=== PATIENT | female | born 1955 | race Caucasian/White ===

== ENCOUNTER 2017-04-12 09:29 | Emergency (ER) | payer OTHER, MEDICAID ==
--- NOTE | 2017-04-12 09:35 | EDM.PDOC ---
ED HPI GENERAL MEDICAL PROBLEM - General Stated Complaint: UNK Time Seen by Provider: 04/12/17 09:35 Source of Information: Reports: Patient - History of Present Illness INITIAL COMMENTS - FREE TEXT/NARRATIVE: HISTORY AND PHYSICAL: History of present illness: [] Patient presents with 8/10 crampy abdominal pain in the right upper quadrant developing over the last few days some association with nausea vomiting 2 weeks ago she was seen [place] with similar similar complaint she states she was found to have "blockage of stool" No fever intermittent nausea and vomiting no chest pain shortness breath headache dizziness or palpitation no bowel or urine symptoms Patient has history of gastric bypass Review of systems: As per history of present illness and below otherwise all systems reviewed and negative. Past medical history: As per history of present illness and as reviewed below otherwise noncontributory. Surgical history: As per history of present illness and as reviewed below otherwise noncontributory. Social history: No reported history of drug or alcohol abuse. Family history: As per history of present illness and as reviewed below otherwise noncontributory. Physical exam: HEENT: Atraumatic, normocephalic, pupils reactive, negative for conjunctival pallor or scleral icterus, mucous membranes moist, throat clear, neck supple, nontender, trachea midline. Lungs: Clear to auscultation, breath sounds equal bilaterally, chest nontender. Heart: S1S2, regular, negative for clicks, rubs, or JVD. Abdomen: Soft, nondistended, tender in right upper quadrant mild guarding no rebound, no tenderness in lower quadrants, Negative for masses or hepatosplenomegaly. Negative for costovertebral tenderness. Pelvis: Stable nontender. Genitourinary: Deferred. Rectal: Deferred. Extremities: Atraumatic, negative for cords or calf pain. Neurovascular unremarkable. Neuro: Awake, alert, oriented. Cranial nerves II through XII unremarkable. Cerebellum unremarkable. Motor and sensory unremarkable throughout. Exam nonfocal. Diagnostics: [] Lab as below EKG CT abdomen pelvis with contrast Therapeutics: [] Normal saline 125 cc per hour Toradol 30 mg IV Zofran 8 mg IV Patient discussed with Dr. Morales general surgery he'll be down for evaluation further treatment pending his evaluation and treatment Impression: colon Obstruction [] Abdominal pain Definitive disposition and diagnosis as appropriate pending reevaluation and review of above. Abdominal Pain Score (Numeric/FACES): 8 - Related Data Allergies Allergy/AdvReac Type Severity Reaction Status Date / Time myacin Allergy Other Uncoded 04/12/17 09:48 Home Meds: Home Meds Hydrocodone/Acetaminophen [Hydrocodon-Acetaminoph 7.5-325] 7.5 - 325 mg PO Q4HR PRN 04/12/17 [History] ED ROS GENERAL - Review of Systems Review Of Systems: ROS reveals no pertinent complaints other than HPI. ED EXAM, GENERAL - Physical Exam Exam: See Below Course - Vital Signs Last Recorded V/S: Last Vital Signs Temp 36.4 C 04/12/17 09:39 Pulse 102 H 04/12/17 13:50 Resp 18 04/12/17 10:06 BP 119/59 L 04/12/17 13:50 Pulse Ox 96 04/12/17 13:50 - Orders/Labs/Meds Orders: Active Orders 24 hr Category Date Time Status Ondansetron [Zofran] Med 04/12/17 14:14 Once 4 mg IVPUSH ONETIME ONE Sodium Chloride 0.9% [Normal Saline] 1,000 ml Med 04/12/17 09:45 Active IV STAT Medication Orders Sodium Chloride (Normal Saline) 1,000 mls @ 125 mls/hr IV STAT JASON Last Admin: 04/12/17 09:59 Dose: 125 mls/hr Labs: Laboratory Tests 04/12/17 04/12/17 04/12/17 Range/Units 09:50 09:50 09:50 WBC 7.41 (4.0-11.0) K/uL RBC 4.07 L (4.30-5.90) M/uL Hgb 10.8 L (12.0-16.0) g/dL Hct 35.7 L (36.0-46.0) % MCV 87.7 (80.0-98.0) fL MCH 26.5 L (27.0-32.0) pg MCHC 30.3 L (31.0-37.0) g/dL RDW Std Deviation 63.7 H (28.0-62.0) fl RDW Coeff of Samantha 20 H (11.0-15.0) % Plt Count 356 (150-400) K/uL MPV 9.40 (7.40-12.00) fL Neut % (Auto) 66.6 (48.0-80.0) % Lymph % (Auto) 22.7 (16.0-40.0) % [place] % (Auto) 10.4 (0.0-15.0) % Eos % (Auto) 0.0 (0.0-7.0) % Baso % (Auto) 0.3 (0.0-1.5) % Neut # (Auto) 4.9 (1.4-5.7) K/uL Lymph # (Auto) 1.7 (0.6-2.4) K/uL [place] # (Auto) 0.8 (0.0-0.8) K/uL Eos # (Auto) 0.0 (0.0-0.7) K/uL Baso # (Auto) 0.0 (0.0-0.1) K/uL Nucleated RBC % 0.0 /100WBC Nucleated RBCs # 0 K/uL Sodium 140 (136-146) mmol/L Potassium 3.9 (3.5-5.1) mmol/L Chloride 110 (98-110) mmol/L Carbon Dioxide 19 L (21-31) mmol/L BUN 11 (6.0-23.0) mg/dL Creatinine 0.8 (0.6-1.5) mg/dL Est Cr Clr Drug Dosing 68.26 mL/min Estimated GFR (MDRD) > 60.0 ml/min Glucose 90 (60-110) mg/dL Calcium 7.5 L (8.8-10.8) mg/dL Total Bilirubin 0.5 (0.1-1.5) mg/dL AST 19 (5-40) IU/L ALT 20 (8-54) IU/L Alkaline Phosphatase 105 (40-150) Troponin I < 0.10 (0.0-0.29) NG/ML Total Protein 5.8 L (6.0-8.0) g/dL Albumin 2.2 L (3.4-4.8) g/dL Globulin 3.6 H (2.0-3.5) g/dL Albumin/Globulin Ratio 0.6 L (1.3-2.8) Amylase 30 (10-90) U/L Lipase 8 (7-80) U/L Urine Color Urine Appearance Urine pH (5.0-8.0) Ur Specific [place] (1.001-1.035) Urine Protein (NEGATIVE) mg/dL Urine Glucose (UA) (NEGATIVE) mg/dL Urine Ketones (NEGATIVE) mg/dL Urine Occult Blood (NEGATIVE) Urine Nitrite (NEGATIVE) Urine Bilirubin (NEGATIVE) Urine Ictotest Urine Urobilinogen (<2.0) EU/dL Ur Leukocyte Esterase (NEGATIVE) Urine RBC (0-2/HPF) Urine WBC (0-5/HPF) Ur Epithelial Cells (NONE-FEW) Urine Bacteria (NEGATIVE) 04/12/17 Range/Units 10:33 WBC (4.0-11.0) K/uL RBC (4.30-5.90) M/uL Hgb (12.0-16.0) g/dL Hct (36.0-46.0) % MCV (80.0-98.0) fL MCH (27.0-32.0) pg MCHC (31.0-37.0) g/dL RDW Std Deviation (28.0-62.0) fl RDW Coeff of Samantha (11.0-15.0) % Plt Count (150-400) K/uL MPV (7.40-12.00) fL Neut % (Auto) (48.0-80.0) % Lymph % (Auto) (16.0-40.0) % [place] % (Auto) (0.0-15.0) % Eos % (Auto) (0.0-7.0) % Baso % (Auto) (0.0-1.5) % Neut # (Auto) (1.4-5.7) K/uL Lymph # (Auto) (0.6-2.4) K/uL [place] # (Auto) (0.0-0.8) K/uL Eos # (Auto) (0.0-0.7) K/uL Baso # (Auto) (0.0-0.1) K/uL Nucleated RBC % /100WBC Nucleated RBCs # K/uL Sodium (136-146) mmol/L Potassium (3.5-5.1) mmol/L Chloride (98-110) mmol/L Carbon Dioxide (21-31) mmol/L BUN (6.0-23.0) mg/dL Creatinine (0.6-1.5) mg/dL Est Cr Clr Drug Dosing mL/min Estimated GFR (MDRD) ml/min Glucose (60-110) mg/dL Calcium (8.8-10.8) mg/dL Total Bilirubin (0.1-1.5) mg/dL AST (5-40) IU/L ALT (8-54) IU/L Alkaline Phosphatase (40-150) Troponin I (0.0-0.29) NG/ML Total Protein (6.0-8.0) g/dL Albumin (3.4-4.8) g/dL Globulin (2.0-3.5) g/dL Albumin/Globulin Ratio (1.3-2.8) Amylase (10-90) U/L Lipase (7-80) U/L Urine Color YELLOW Urine Appearance CLEAR Urine pH 5.5 (5.0-8.0) Ur Specific [place] >= 1.030 (1.001-1.035) Urine Protein TRACE (NEGATIVE) mg/dL Urine Glucose (UA) NEGATIVE (NEGATIVE) mg/dL Urine Ketones 15 H (NEGATIVE) mg/dL Urine Occult Blood NEGATIVE (NEGATIVE) Urine Nitrite NEGATIVE (NEGATIVE) Urine Bilirubin MODERATE H (NEGATIVE) Urine Ictotest POSITIVE Urine Urobilinogen 0.2 (<2.0) EU/dL Ur Leukocyte Esterase NEGATIVE (NEGATIVE) Urine RBC 2-4 (0-2/HPF) Urine WBC 0-3 (0-5/HPF) Ur Epithelial Cells MODERATE (NONE-FEW) Urine Bacteria FEW (NEGATIVE) Meds: Medications Generic Name Dose Route Start Last Admin Trade Name Freq PRN Reason Stop Dose Admin Sodium Chloride 1,000 mls @ 125 mls/hr 04/12/17 09:45 04/12/17 09:59 Normal Saline IV 125 mls/hr STAT JASON Administration Discontinued Medications Generic Name Dose Route Start Last Admin Trade Name Freq PRN Reason Stop Dose Admin Diphtheria/Tetanus/Acell Pertussis Confirm 04/12/17 09:45 04/12/17 10:05 Adacel Administered 04/12/17 09:46 Not Given Dose 0.5 ml .ROUTE .STK-MED ONE Iopamidol 100 ml 04/12/17 13:13 04/12/17 13:14 Isovue Multipack-370 (76%) IVPUSH 04/12/17 13:14 100 ml ONETIME STA Administration Ketorolac Tromethamine 30 mg 04/12/17 09:42 04/12/17 10:02 Toradol IVPUSH 04/12/17 09:43 30 mg ONETIME ONE Administration Ondansetron HCl 8 mg 04/12/17 09:42 04/12/17 09:59 Zofran IVPUSH 04/12/17 09:43 8 mg ONETIME ONE Administration Departure - Departure Time of Disposition: 14:14 Disposition: DC/Tfer to Other 70 Condition: poor Clinical Impression: Large bowel obstruction - Discharge Information Referrals: PCP,None [Primary Care Provider] - - My Orders Last 24 Hours: My Active Orders 04/12/17 09:45 Sodium Chloride 0.9% [Normal Saline] 1,000 ml IV STAT - Assessment/Plan Last 24 Hours: My Active Orders 04/12/17 09:45 Sodium Chloride 0.9% [Normal Saline] 1,000 ml IV STAT
[2017-04-12] MEDS ORDERED: Ketorolac 30 MG/ML SDV IVPUSH ONE (09:42)
[2017-04-12] MEDS ORDERED: Ondansetron 4 MG/2 ML SDV IVPUSH ONE ×2 (09:42→14:14)
[2017-04-12] MEDS ORDERED: Diphtheria,Pertussis(Acell),Tetanus Vaccine 0.5 ML Syringe ONE (09:45)
[2017-04-12] MEDS ORDERED: Sodium Chloride 0.9% 1,000 ML IV SCH (09:45)
[2017-04-12 10:38] LABS: CHLORIDE,CL 110 mmol/L (98-110); SODIUM,NA 140 mmol/L (136-146)
--- NOTE | 2017-04-12 12:20 | CT ---
EXAM DATE: 04/12/17 PATIENT'S AGE: 61 Patient: MAC CALLAHAN Facility: [place], [place] Site . Site : 1955 Study: CT Abdomen/Pelvis [id number]/2/2017 11:27:30 AM Ordering Physician: David Givens Final Report: INDICATION: Lower abdominal pain, nausea, vomiting and diarrhea. TECHNIQUE: Volumetric helical scanning of the abdomen and pelvis was performed with 100 cc of Isovue 370 contrast material IV. Coronal and sagittal reconstructions were obtained. COMPARISON: None. FINDINGS: Colon obstruction at hepatic flexure is demonstrated on images 45-55 of series 201. A stricture is present at this site, potentially due to a carcinoma. Proximal to this site the colon and small bowel is dilated and contains air- fluid levels. No pneumatosis or free air is evident. A small amount of free fluid is noted. Postop changes of gastric resection/bypass are noted. Fatty change is demonstrated in the liver. The liver is normal in size and shape. Numerous small stones are present in the gallbladder. Nonobstructing stones in the distal common bile duct are possible, as seen on images 45-48. No bile duct dilation is evident. The spleen, adrenal glands and pancreas are within normal limits. Numerous parapelvic renal cysts are present bilaterally. The kidneys are otherwise unremarkable. No lymphadenopathy is evident. The uterus and ovaries are unremarkable. The lung bases are clear. A small left pleural effusion is noted. A noncalcified 3 mm right middle lobe nodule is demonstrated on image 1. The heart is normal in size. IMPRESSION: 1. Colonic obstruction by a hepatic flexure stricture, possibly a carcinoma. 2. Small amount of free intraperitoneal fluid and small left pleural effusion. 3. Cholelithiasis and possible choledocholithiasis. 4. Post gastric resection/bypass. 5. Fatty liver. 6. Parapelvic renal cysts bilaterally. 7. Noncalcified 3 mm right middle lobe nodule. Follow-up in accordance with Fleischner Society Guidelines (see below) is recommended. FLEISCHNER SOCIETY GUIDELINES: LOW RISK: - nodule less than 6 mm: No follow-up needed. - nodule 6-8 mm: Initial follow-up CT at 6-12 months and then at 18-24 months if no change. - nodule greater than 8 mm: Follow-up CTs at around 3, 9, and 24 months. Dynamic contrast-enhanced CT, PET, and/or biopsy. MULTIPLE LOW RISK: - nodule less than 6 mm: No follow-up needed. - nodule 6-8 mm: CT at 3-6 months, then consider CT at 18-24 months. - nodule greater than 8 mm: CT at 3-6 months, then consider CT at 18-24 months. HIGH RISK: - nodule less than 6 mm: Follow-up at 12 months. If no change, no further imaging needed. - nodule 6-8 mm: Initial follow-up CT at 3-6 months and then at 9-12 and 24 months if no change. - nodule greater than 8 mm: Follow-up CTs at around 3, 9, and 24 months. Dynamic contrast-enhanced CT, PET, and/or biopsy. MULTIPLE HIGH RISK: - nodule less than 6 mm: Optional CT at 12 months. - nodule 6-8 mm: CT at 3-6 months, then at 18-24 months. - nodule greater than 8 mm: CT at 3-6 months, then at 18-24 months. HIGH RISK is defined as one or more of the following: - at least 20 pack-year smoking history or equivalent second-hand exposure. - personal history of cancer or family history of lung cancer. - occupational exposure (asbestos, beryllium, silica, uranium, radon) - chronic interstitial/fibrotic lung disease. Please note that all CT scans at this facility use dose modulation, iterative reconstruction, and/or weight-based dosing when appropriate to reduce radiation dose to as low as reasonably achievable. Dictated by Jesus Negrete MD @ Apr 12 2017 11:52AM (Electronic Signature) Report Signed by Proxy. YOJANA
[2017-04-12] MEDS ORDERED: Iopamidol 755 MG/ML 500 ML Multipack Bottle IVPUSH STA (13:13)
[2017-04-12 13:50] VITALS: BP 119/59
--- NOTE | 2017-04-12 21:48 | CONS ---
DATE OF CONSULTATION: 04/12/2017 DATE OF : 1955 PRIMARY CARE PHYSICIAN: None PCP Consult was called. The patient was seen shortly after. CONCERNING QUESTION: Bowel obstruction. HISTORY OF PRESENT ILLNESS: The patient is a 61-year-old obese lady and first time come to this emergency room, complained of a 36-hour history of gradual onset of nausea and vomiting, no flatus, and only a smear on the day of the ER visit and there is no well formed stool, and nausea and vomiting. The patient remarked that also she is also having abdominal pain, but is not quite clear as she is on chronic hydrocodone for her back ache and right leg pain. The patient remarked some weight loss 3 months ago when she was seen in outside hospital for similar situation and she was told for the patient remarked that her anatomy is a little bit too complicated for surgery and they treat her conservatively with IV fluid and then she moved her bowel and she was discharged that was 2 months ago. She never had a colonoscopy and she also sustained some weight loss lately. She also sleep with 2 pillows pop up and because of breathing and she is walking with a walker. She is not very active. PAST MEDICAL HISTORY: Significant for no diabetic, GA, CVA, and hypertension. ALLERGIES: Please refer to nursing for details. MEDICATION: Please refer to nursing for details. FAMILY HISTORY: Noncontributory. REVIEW OF SYSTEMS: Same as history of present illness. WORKUP: Included CAT scan. Review of colonic obstruction at the hepatic flexure with the stricture and also numerous gallstone. LABORATORY DATA: Upon consultation white count 7, BUN is 14 and creatinine is 0.8. Amylase and lipase are within normal limits. PHYSICAL EXAMINATION: GENERAL: A lady who has pale appearance, resting on stretcher. HEENT: Normocephalic, atraumatic. Sclerae anicteric. LUNGS: Clear to auscultation. HEART: Regular rate and rhythm. ABDOMEN: Soft, but very diminished bowel sounds and with high-pitched tingling when there is bowel sound and tenderness at bilateral quadrants. No rebound tenderness. IMPRESSION: Bowel obstruction with stricture hepatic flexure, concerning for carcinoma and because the patient's two times gastric bypass with the second time "is an atypical gastric bypass" because of the anatomy and also the patient was sleeping on 2 pillows and not very active concerning postop possible ventilator problem and our hospital also do not do gastric bypass with everything considered the patient's requests for a tertiary care center and the patient's condition present to Dr. Dela Cruz at [facility] in [facility] and he will gladly accept the patient and the patient is now transferred to outside facility for further management. KATARZYNA / ROXANA /[id number] YOJANA
== END 2017-04-12 14:40 | disposition other institution (70) ==
LOC: MW.ED 09:29
DX: K56.60 Unspecified intestinal obstruction (principal); Z98.84 Bariatric surgery status
CPT/HCPCS: 36415; 74177; 80053; 81001; 82150; 83690; 84484; 85025; 96361; 96374; 96375; 96376; 99285; J1885; J2405; J7040; Q9967

== ENCOUNTER 2017-04-24 21:09 | Inpatient (IN) | payer OTHER, MEDICAID ==
[2017-04-24] MEDS ORDERED: Sodium Chloride 0.9% 1,000 ML IV ONE (21:24)
--- NOTE | 2017-04-24 21:25 | EDM.PDOC ---
[id number] 4d weakness Time Seen by Provider: 04/24/17 21:21 Source of Information: Reports: Patient History Limitations: Reports: No Limitations - History of Present Illness INITIAL COMMENTS - FREE TEXT/NARRATIVE: HISTORY AND PHYSICAL: History of present illness: [62-year-old female 11 days out from a bowel surgery in [place] to treat a bowel obstruction. Patient states she was improving the hospital but since getting home she's gotten progressively weaker. Today she went to the restroom after which she felt very lightheaded and nearly fainted. Patient did not lose consciousness or fall. Was no specific complaint. No chest pain or shortness of breath. Normal bowel habits no cough or shortness of air] Review of systems: As per history of present illness and below otherwise all systems reviewed and negative. Past medical history: As per history of present illness and as reviewed below otherwise noncontributory. Surgical history: As per history of present illness and as reviewed below otherwise noncontributory. Social history: No reported history of drug or alcohol abuse. Family history: As per history of present illness and as reviewed below otherwise noncontributory. Physical exam: Generally weak appearing older female in no acute distress alert communicative appropriate and cooperative HEENT: Atraumatic, normocephalic, pupils reactive, negative for conjunctival pallor or scleral icterus, mucous membranes moist, throat clear, neck supple, nontender, trachea midline. Lungs: Clear to auscultation, breath sounds equal bilaterally, chest nontender. Heart: S1S2, regular, negative for clicks, rubs, or JVD. Abdomen: Soft, nondistended, nontender. Negative for masses or hepatosplenomegaly. Negative for costovertebral tenderness. Pelvis: Stable nontender. Genitourinary: Deferred. Rectal: Deferred. Extremities: Atraumatic, negative for cords or calf pain. Neurovascular unremarkable. Neuro: Awake, alert, oriented. Cranial nerves II through XII unremarkable. Cerebellum unremarkable. Motor and sensory unremarkable throughout. Exam nonfocal. Diagnostics: [] Therapeutics: [] Impression: [] Plan: [Patient feels generally weak. Workup was remarkable for positive UA. Antibody treatment initiated and given patient's weakened state and inability to ambulate will do admission for IV antibiotics and further care. I'll signs stable] Definitive disposition and diagnosis as appropriate pending reevaluation and review of above. no pain Pain Score (Numeric/FACES): 0 Bilateral Leg Pain Score (Numeric/FACES): 3 - Related Data Allergies Allergy/AdvReac Type Severity Reaction Status Date / Time myacin Allergy Other Uncoded 04/24/17 21:13 Home Meds: Home Meds Hydrocodone/Acetaminophen [Hydrocodon-Acetaminoph 7.5-325] 7.5 - 325 mg PO Q4HR PRN 04/12/17 [History] Past Medical History Other Gastrointestinal History: bowel obstruction Musculoskeletal History: Reports: Osteoporosis - Infectious Disease History Infectious Disease History: Reports: Chicken Pox, Mumps, Shingles - Past Surgical History HEENT Surgical History: Reports: Tonsillectomy GI Surgical History: Reports: Appendectomy Other GI Surgeries/Procedures: gastric bypass x 2 Female Surgical History: Reports: Section Other Musculoskeletal Surgeries/Procedures:: douglas right knee and right hip Social & Family History - Family History Family Medical History: Noncontributory - Tobacco Use Smoking Status *Q: Never Smoker Second Hand Smoke Exposure: No - Caffeine Use Caffeine Use: Reports: None - Recreational Drug Use Recreational Drug Use: No ED ROS GENERAL - Review of Systems Review Of Systems: See Below ED EXAM, GENERAL - Physical Exam Exam: See Below (History of present illness) Course - Vital Signs Last Recorded V/S: Last Vital Signs Temp 37.1 C 04/25/17 04:00 Pulse 111 H 04/25/17 04:00 Resp 20 04/25/17 04:00 BP 119/87 04/25/17 04:00 Pulse Ox 98 04/25/17 04:00 - Orders/Labs/Meds Orders: Active Orders 24 hr Category Date Time Status EKG Documentation Completion [RC] STAT Care 04/24/17 21:24 Active Peripheral IV Care [RC] . DIRECTED Care 04/24/17 21:24 Active Chest 1V Frontal [CR] Stat Exams 04/24/17 21:24 Taken CULTURE BLOOD [BC] Stat Lab 04/25/17 00:15 Received CULTURE BLOOD [BC] Stat Lab 04/25/17 00:24 Received CULTURE URINE [RM] Stat Lab 04/25/17 00:10 Received Blood Culture x2 Reflex Set [OM.PC] Stat Oth 04/25/17 00:07 Ordered Peripheral IV Insertion Adult [OM.PC] Stat Oth 04/24/17 21:24 Ordered Medication Orders Hydrocodone Bitart/Acetaminophen ([place] 325-7.5 Mg) 1 tab PO Q4H PRN PRN Reason: Pain Last Admin: 04/25/17 02:32 Dose: 1 tab Sodium Chloride (Normal Saline) 1,000 mls @ 125 mls/hr IV ASDIRECTED JASON Last Admin: 04/25/17 02:32 Dose: 125 mls/hr Ceftriaxone Sodium/Dextrose 1 (gm/ Premix) 50 mls @ 100 mls/hr IV Q24H JASON Labs: Laboratory Tests 04/24/17 04/24/17 04/24/17 Range/Units 21:43 21:43 21:43 WBC 13.92 H (4.0-11.0) K/uL RBC 3.73 L (4.30-5.90) M/uL Hgb 10.0 L (12.0-16.0) g/dL Hct 30.8 L (36.0-46.0) % MCV 82.6 (80.0-98.0) fL MCH 26.8 L (27.0-32.0) pg MCHC 32.5 (31.0-37.0) g/dL RDW Std Deviation 57.1 (28.0-62.0) fl RDW Coeff of Samantha 19 H (11.0-15.0) % Plt Count 377 (150-400) K/uL MPV 9.10 (7.40-12.00) fL Neut % (Auto) 83.2 H (48.0-80.0) % Lymph % (Auto) 11.0 L (16.0-40.0) % [place] % (Auto) 5.7 (0.0-15.0) % Eos % (Auto) 0.0 (0.0-7.0) % Baso % (Auto) 0.1 (0.0-1.5) % Neut # (Auto) 11.6 H (1.4-5.7) K/uL Lymph # (Auto) 1.5 (0.6-2.4) K/uL [place] # (Auto) 0.8 (0.0-0.8) K/uL Eos # (Auto) 0.0 (0.0-0.7) K/uL Baso # (Auto) 0.0 (0.0-0.1) K/uL Nucleated RBC % 0.0 /100WBC Nucleated RBCs # 0 K/uL Lactate (0.20-2.00) mmol/L Sodium 136 (136-146) mmol/L Potassium 3.9 (3.5-5.1) mmol/L Chloride 106 (98-110) mmol/L Carbon Dioxide 20 L (21-31) mmol/L BUN 17 (6.0-23.0) mg/dL Creatinine 0.8 (0.6-1.5) mg/dL Est Cr Clr Drug Dosing 67.38 mL/min Estimated GFR (MDRD) > 60.0 ml/min Glucose 98 (60-110) mg/dL Calcium 7.0 L (8.8-10.8) mg/dL Total Bilirubin 1.2 (0.1-1.5) mg/dL AST 17 (5-40) IU/L ALT 25 (8-54) IU/L Alkaline Phosphatase 203 H (40-150) Troponin I < 0.10 (0.0-0.29) NG/ML Total Protein 4.7 L (6.0-8.0) g/dL Albumin 1.5 L (3.4-4.8) g/dL Globulin 3.2 (2.0-3.5) g/dL Albumin/Globulin Ratio 0.5 L (1.3-2.8) Urine Color Urine Appearance Urine pH (5.0-8.0) Ur Specific [place] (1.001-1.035) Urine Protein (NEGATIVE) mg/dL Urine Glucose (UA) (NEGATIVE) mg/dL Urine Ketones (NEGATIVE) mg/dL Urine Occult Blood (NEGATIVE) Urine Nitrite (NEGATIVE) Urine Bilirubin (NEGATIVE) Urine Ictotest Urine Urobilinogen (<2.0) EU/dL Ur Leukocyte Esterase (NEGATIVE) Urine RBC (0-2/HPF) Urine WBC (0-5/HPF) Ur Epithelial Cells (NONE-FEW) Urine Bacteria (NEGATIVE) Hyaline Casts (0-2/LPF) Urinalysis Comment 04/24/17 04/25/17 Range/Units 22:20 00:24 WBC (4.0-11.0) K/uL RBC (4.30-5.90) M/uL Hgb (12.0-16.0) g/dL Hct (36.0-46.0) % MCV (80.0-98.0) fL MCH (27.0-32.0) pg MCHC (31.0-37.0) g/dL RDW Std Deviation (28.0-62.0) fl RDW Coeff of Samantha (11.0-15.0) % Plt Count (150-400) K/uL MPV (7.40-12.00) fL Neut % (Auto) (48.0-80.0) % Lymph % (Auto) (16.0-40.0) % [place] % (Auto) (0.0-15.0) % Eos % (Auto) (0.0-7.0) % Baso % (Auto) (0.0-1.5) % Neut # (Auto) (1.4-5.7) K/uL Lymph # (Auto) (0.6-2.4) K/uL [place] # (Auto) (0.0-0.8) K/uL Eos # (Auto) (0.0-0.7) K/uL Baso # (Auto) (0.0-0.1) K/uL Nucleated RBC % /100WBC Nucleated RBCs # K/uL Lactate 0.9 (0.20-2.00) mmol/L Sodium (136-146) mmol/L Potassium (3.5-5.1) mmol/L Chloride (98-110) mmol/L Carbon Dioxide (21-31) mmol/L BUN (6.0-23.0) mg/dL Creatinine (0.6-1.5) mg/dL Est Cr Clr Drug Dosing mL/min Estimated GFR (MDRD) ml/min Glucose (60-110) mg/dL Calcium (8.8-10.8) mg/dL Total Bilirubin (0.1-1.5) mg/dL AST (5-40) IU/L ALT (8-54) IU/L Alkaline Phosphatase (40-150) Troponin I (0.0-0.29) NG/ML Total Protein (6.0-8.0) g/dL Albumin (3.4-4.8) g/dL Globulin (2.0-3.5) g/dL Albumin/Globulin Ratio (1.3-2.8) Urine Color DARK YELLOW Urine Appearance CLOUDY Urine pH 5.0 (5.0-8.0) Ur Specific [place] 1.025 (1.001-1.035) Urine Protein 30 (NEGATIVE) mg/dL Urine Glucose (UA) NEGATIVE (NEGATIVE) mg/dL Urine Ketones 15 H (NEGATIVE) mg/dL Urine Occult Blood TRACE-LYSED (NEGATIVE) Urine Nitrite POSITIVE H (NEGATIVE) Urine Bilirubin LARGE H (NEGATIVE) Urine Ictotest POSITIVE Urine Urobilinogen 4.0 H (<2.0) EU/dL Ur Leukocyte Esterase TRACE (NEGATIVE) Urine RBC 1-3 (0-2/HPF) Urine WBC 6-10 (0-5/HPF) Ur Epithelial Cells MODERATE (NONE-FEW) Urine Bacteria 3+ H (NEGATIVE) Hyaline Casts 20-30 (0-2/LPF) Urinalysis Comment SEE COMMENT Meds: Medications Generic Name Dose Route Start Last Admin Trade Name Freq PRN Reason Stop Dose Admin Hydrocodone Bitart/Acetaminophen 1 tab 04/25/17 01:59 04/25/17 02:32 [place] 325-7.5 Mg PO 1 tab Q4H PRN Administration Pain Sodium Chloride 1,000 mls @ 125 mls/hr 04/25/17 02:15 04/25/17 02:32 Normal Saline IV 125 mls/hr ASDIRECTED JASON Administration Ceftriaxone Sodium/Dextrose 1 50 mls @ 100 mls/hr 04/26/17 00:00 gm/ Premix IV Q24H JASON Discontinued Medications Generic Name Dose Route Start Last Admin Trade Name Freq PRN Reason Stop Dose Admin Sodium Chloride 1,000 mls @ 999 mls/hr 04/24/17 21:24 04/24/17 21:40 Normal Saline IV 04/24/17 22:24 999 mls/hr .Bolus ONE Administration Ceftriaxone Sodium/Dextrose 1 50 mls @ 100 mls/hr 04/25/17 00:08 04/25/17 00: 49 gm/ Premix IV 04/25/17 00:37 100 mls/hr ONETIME ONE Administration Departure - Departure Time of Disposition: 00:30 Disposition: Admitted As Inpatient 65 Clinical Impression: Urinary tract infection, Tachycardia, Systemic inflammatory response syndrome ( SIRS), Sepsis - Discharge Information - My Orders Last 24 Hours: My Active Orders 04/24/17 21:24 EKG Documentation Completion [RC] STAT Peripheral IV Care [RC] . DIRECTED Chest 1V Frontal [CR] Stat Peripheral IV Insertion Adult [OM.PC] Stat 04/25/17 00:07 Blood Culture x2 Reflex Set [OM.PC] Stat 04/25/17 00:10 CULTURE URINE [RM] Stat 04/25/17 00:15 CULTURE BLOOD [BC] Stat 04/25/17 00:24 CULTURE BLOOD [BC] Stat - Assessment/Plan Last 24 Hours: My Active Orders 04/24/17 21:24 EKG Documentation Completion [RC] STAT Peripheral IV Care [RC] . DIRECTED Chest 1V Frontal [CR] Stat Peripheral IV Insertion Adult [OM.PC] Stat 04/25/17 00:07 Blood Culture x2 Reflex Set [OM.PC] Stat 04/25/17 00:10 CULTURE URINE [RM] Stat 04/25/17 00:15 CULTURE BLOOD [BC] Stat 04/25/17 00:24 CULTURE BLOOD [BC] Stat
[2017-04-24 22:21] LABS: CHLORIDE,CL 106 mmol/L (98-110); SODIUM,NA 136 mmol/L (136-146)
[2017-04-25] MEDS ORDERED: cefTRIAXone 1 GM in Premix Bag 1 BAG IV ONE (00:08)
[2017-04-25] MEDS: Acetaminophen/HYDROcodone 325-7.5 MG Tab PO PRN ×5 (02:32→23:56)
[2017-04-25] MEDS: Sodium Chloride 0.9% 1,000 ML IV SCH ×2 (02:32→10:22)
[2017-04-25 05:04] LABS: CHLORIDE,CL 107 mmol/L (98-110); SODIUM,NA 135 mmol/L (136-146)
--- NOTE | 2017-04-25 07:36 | PCM.HP ---
Addendum entered and electronically signed by Alethea Lyman NP 04/25/17 13: 53: Anasarca noted. Albumin 1.5. Denies history of heart failure or renal insufficiency. EKG remains ST with PACs. Magnesium low, will supplement. Will stop IVFs for now, administer Lasix 40 mg IV x1 and monitor urine output. Will obtain ECHO. Still awaiting results from [facility] in [place]. Original Note: H&P History of Present Illness - General Date of Service: 04/25/17 Admit Problem/Dx: Admission Diagnosis/Problem Admission Diagnosis/Problem UTI, Urinary tract infectious disease Source of Information: Patient History Limitations: Reports: No Limitations - History of Present Illness Initial Comments - Free Text/Narative: This 62 year old female with pmh of gastric bypass x2, recent bowel resention secondary to stricture and obstruction presented to the ED via EMS after falling at home. She reports since her release last week from the hospital in [place], [place] she has felt progressive weakness and feels very nervous getting up. She denies any chest pain, palpitations, SOB or abdominal pain. She has some incision pain to her abdomen upon palpation. No urinary symptoms, such as urgency dysuria or frequency. No fevers at home, no cough or sputum production. She has been eating well, without N/V. She has been having BMs. She reports her legs are so weak and she is very scared to ambulate at home because she is afraid of falling and she has little help at home. She denies cardiac history or pulmonary history. She reports she was recommended to follow up with an oncologist after discharge. Will obtain records from [place]. S She is originally from [place] and is here with and son now. She has plans of returning to [place] but has no time frame to do so. In the ED leukocytosis noted, 13,920, Hgb 10.0. BUN 17, Cr 0.8, Ca 7.0. UA revealed 3+ bacteria, +nitrite, trace leukocyte estrase,. She was noted to be tachycardic 100-110, BP 100-120/50-80s. She was treated with Rocephin and IVFs. BC and UC pending. She will be admitted for UTI and weakness. Bilateral Leg Pain Score (Numeric/FACES): 3 no pain Pain Score (Numeric/FACES): 0 - Related Data Allergies/Adverse Reactions: Allergies Allergy/AdvReac Type Severity Reaction Status Date / Time myacin Allergy Other Uncoded 04/24/17 21:13 Home Medications: Home Meds Hydrocodone/Acetaminophen [Hydrocodon-Acetaminoph 7.5-325] 7.5 - 325 mg PO Q4HR PRN 04/12/17 [History] Past Medical History Cardiovascular History: Reports: None. Denies: Blood Clots/VTE/DVT, CAD, High Cholesterol, Hypertension, CA Respiratory History: Reports: None. Denies: COPD, PE Gastrointestinal History: Reports: Colon Polyp, Other (See Below) Other Gastrointestinal History: bowel obstruction with recent resection Genitourinary History: Reports: None. 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 Denies: CVA, Headaches, Chronic, MS, TIA Psychiatric History: Reports: None Endocrine/Metabolic History: Reports: Obesity/BMI 30+. Denies: Diabetes, Type II, Hypothyroidism Hematologic History: Reports: None Immunologic History: Reports: None Oncologic (Cancer) History: Reports: Colon, Other (See Below) Other Oncologic History: skin cancer Dermatologic History: Reports: None - Infectious Disease History Infectious Disease History: Reports: Chicken Pox, Mumps, Shingles - Past Surgical History HEENT Surgical History: Reports: Tonsillectomy GI Surgical History: Reports: Appendectomy, Colon (resection) Other GI Surgeries/Procedures: gastric bypass x 2 Female Surgical History: Reports: Section Other Musculoskeletal Surgeries/Procedures:: douglas right knee and right hip Social & Family History - Family History Family Medical History: Noncontributory - Tobacco Use Smoking Status *Q: Never Smoker Second Hand Smoke Exposure: No - Caffeine Use Caffeine Use: Reports: None - Alcohol Use Days Per Week of Alcohol Use: 2 Number of Drinks Per Day: 1 Total Drinks Per Week: 2 Date of Last Drink: 03/26/17 - Recreational Drug Use Recreational Drug Use: No - Living Situation & Occupation Living situation: Reports: Occupation: Unemployed H&P Review of Systems - Review of Systems: Review Of Systems: See Below General: Reports: Weakness, Fatigue. Denies: Fever, Chills HEENT: Reports: No Symptoms. Denies: Headaches, Sinus Congestion, Sore Throat Pulmonary: Reports: No Symptoms. Denies: Shortness of Breath, Cough, Sputum Cardiovascular: Reports: Edema (legs and abdomen reports this since recent surgery) Gastrointestinal: Reports: No Symptoms, Flatus. Denies: Abdominal Pain, Black Stool, Bloody Stool, Constipation, Nausea, Vomiting Genitourinary: Reports: No Symptoms. Denies: Dysuria, Frequency, Burning, Hematuria, Flank Pain Musculoskeletal: Reports: Back Pain (chronic) Skin: Reports: No Symptoms Psychiatric: Reports: No Symptoms Neurological: Reports: No Symptoms Hematologic/Lymphatic: Reports: No Symptoms Immunologic: Reports: No Symptoms Exam - Exam Exam: See Below - Vital Signs Vital Signs: Last Vital Signs Temp 98.8 F 04/25/17 04:00 Pulse 111 H 04/25/17 04:00 Resp 20 04/25/17 04:00 BP 119/87 04/25/17 04:00 Pulse Ox 98 04/25/17 04:00 Weight: 105.5 kg - Exam Quality Assessment: Urinary Catheter, DVT Prophylaxis General: Alert, Oriented, Cooperative, Other (pale in appearance and tired appearing) HEENT: Conjunctiva Clear, Mucosa Moist & [place], Nares Patent, Pupils Equal Neck: Supple, Trachea Midline, +2 Carotid Pulse wo Bruit Lungs: Clear to Auscultation, Normal Respiratory Effort. No: Crackles, Wheezing Cardiovascular: Regular Rhythm, Normal S1, Normal S2, Tachycardia Abdomen: Normal Bowel Sounds, Soft, Tenderness (near incision only), Other ( midline incision with steri strips intact, no erythema or drainage noted.). No : Peritoneal Signs, Distention, Guarding, Rigidity Extremities: Normal Pulses, Edema (+2 ) Neurological: Cranial Nerves Intact Neuro Extensive - Mental Status: Alert, Oriented x3, Normal Mood/Affect, Normal Cognition Neuro Extensive - Motor, Sensory, Reflexes: CN II-XII Intact, Normal Gait Psychiatric: Alert, Normal Affect, Normal Mood - Patient Data Lab Results Last 24 hrs: Laboratory Results - last 24 hr 04/25/17 04/25/17 Range/Units 04:20 04:20 WBC 10.49 (4.0-11.0) K/uL RBC 3.17 L (4.30-5.90) M/uL Hgb 8.7 L (12.0-16.0) g/dL Hct 26.0 L (36.0-46.0) % MCV 82.0 (80.0-98.0) fL MCH 27.4 (27.0-32.0) pg MCHC 33.5 (31.0-37.0) g/dL RDW Std Deviation 52.7 (28.0-62.0) fl RDW Coeff of Samantha 19 H (11.0-15.0) % Plt Count 196 (150-400) K/uL MPV 10.50 (7.40-12.00) fL Neut % (Auto) 75.0 (48.0-80.0) % Lymph % (Auto) 17.8 (16.0-40.0) % [place] % (Auto) 6.9 (0.0-15.0) % Eos % (Auto) 0.2 (0.0-7.0) % Baso % (Auto) 0.1 (0.0-1.5) % Neut # (Auto) 7.9 H (1.4-5.7) K/uL Lymph # (Auto) 1.9 (0.6-2.4) K/uL [place] # (Auto) 0.7 (0.0-0.8) K/uL Eos # (Auto) 0.0 (0.0-0.7) K/uL Baso # (Auto) 0.0 (0.0-0.1) K/uL Sodium 135 L (136-146) mmol/L Potassium 3.9 (3.5-5.1) mmol/L Chloride 107 (98-110) mmol/L Carbon Dioxide 19 L (21-31) mmol/L BUN 16 (6.0-23.0) mg/dL Creatinine 0.7 (0.6-1.5) mg/dL Est Cr Clr Drug Dosing 77.01 mL/min Estimated GFR (MDRD) > 60.0 ml/min Glucose 70 (60-110) mg/dL Calcium 6.4 L (8.8-10.8) mg/dL Result Diagrams: 04/25/17 04:20 04/25/17 04:20 *Q Meaningful Use (ADM) - VTE *Q VTE Criteria *Q: - Stroke *Q Stroke Criteria *Q: - AMI *Q AMI Criteria *Q: - Problem List (1) UTI (urinary tract infection) SNOMED Code(s): 60845392 ICD Code: N39.0 - URINARY TRACT INFECTION, SITE NOT SPECIFIED Status: Acute Current Visit: Yes Qualifiers: Urinary tract infection type: acute cystitis Hematuria presence: without hematuria Qualified Code(s): N30.00 - Acute cystitis without hematuria (2) Tachycardia SNOMED Code(s): 5462651 ICD Code: R00.0 - TACHYCARDIA, UNSPECIFIED Status: Acute Current Visit: Yes (3) Generalized weakness SNOMED Code(s): 79997916 ICD Code: R53.1 - WEAKNESS Status: Acute Current Visit: Yes (4) Anemia SNOMED Code(s): 188657144 ICD Code: D64.9 - ANEMIA, UNSPECIFIED Status: Acute Current Visit: Yes (5) History of bowel resection SNOMED Code(s): 113818419 ICD Code: Z92.89 - PERSONAL HISTORY OF OTHER MEDICAL TREATMENT Status: Chronic Current Visit: Yes (6) Obesity SNOMED Code(s): 534661632 ICD Code: E66.9 - OBESITY, UNSPECIFIED Status: Chronic Current Visit: Yes Problem List Initiated/Reviewed/Updated: Yes Orders Last 24hrs: Active Orders 24 hr Category Date Time Status Nurse Case Manager Discontinue [Cardiac Monitoring Care 04/25/17 02:19 Active Discontinue] [RC] Click To Edit Regular Diet [DIET] Diet 04/25/17 Breakfast Active Acetaminophen/HYDROcodone [[place] 325-7.5 MG] Med 04/25/17 01:59 Active 1 tab PO Q4H PRN Sodium Chloride 0.9% [Normal Saline] 1,000 ml Med 04/25/17 02:15 Active IV ASDIRECTED cefTRIAXone [Rocephin in Dextrose,Iso-Osm 1 GM/50 ML] 1 Med 04/26/17 00:00 Active gm Premix Bag 1 bag IV Q24H Medication Orders Hydrocodone Bitart/Acetaminophen ([place] 325-7.5 Mg) 1 tab PO Q4H PRN PRN Reason: Pain Last Admin: 04/25/17 02:32 Dose: 1 tab Sodium Chloride (Normal Saline) 1,000 mls @ 125 mls/hr IV ASDIRECTED JASON Last Admin: 06/15/17 02:32 Dose: 125 mls/hr Ceftriaxone Sodium/Dextrose 1 (gm/ Premix) 50 mls @ 100 mls/hr IV Q24H JASON Assessment/Plan Comment:: This 62 year old female admitted with UTI and generalized weakness 1. UTI: UC pending. Continue Rocephin and IVFs, urine appears very concentrated. Pedroza placed in ED. BC and UC pending. 2. Generalized weakness: deconditioning secondary to recent hospitalization. Will have PT evaluate and treat. Obtain orthostatics 3. Anemia: Likely secondary to recent surgery. Denies black or bloody BMs, will obtain hemoccult. R hemicolectomy in [place] due to R colon ca, will obtain records from [place] to further clarify recent surgery and discharge plan. VTE prophylaxis: SCDs for now until rule out bleeding. Dispo: Pending improvement.
[2017-04-25] MEDS ORDERED: Calcium Carbonate 500 MG Tab.Chew PO ONE (09:02)
--- NOTE | 2017-04-25 10:07 | CR ---
EXAM DATE: 04/25/17 PATIENT'S AGE: 62 Patient: MAC CALLAHAN Facility: [place], [place] Site . Site : [id number] Study: XRay Chest [id number]/14/2017 9:59:08 PM Ordering Physician: Leandro Castro Final Report: INDICATION: weakness, colonectomy and cholecystectomy 1.5 wks ago HISTORY: Weakness. Recent surgery. COMPARISON: CT abdomen and pelvis 04/12/2017. TECHNIQUE: Chest one-view portable upright. FINDINGS: Small left pleural effusion versus pleural thickening at the left lateral costophrenic sulcus. Linear atelectasis about the right pulmonary hilum. No acute airspace disease. Punctate density in the right lower lung zone is most likely a small calcified granuloma. This appears hyperdense, and measures 3-4 mm. Anastomotic sutures in the left upper quadrant. IMPRESSION: 1. No acute airspace disease. 2. Small left pleural effusion versus pleural thickening at the left lateral costophrenic sulcus. Dictated by Antoni Singh MD @ 04/24/2017 10:19:22 PM Dictated by: Antoni Singh MD @ 04/24/2017 22:19:28 (Electronic Signature) Report Signed by Proxy. [facility]
[2017-04-25] MEDS ORDERED: Sodium Chloride 0.9% 500 ML IV SCH (10:15)
[2017-04-25] MEDS ORDERED: Furosemide 40 MG/4 ML VIAL IVPUSH ONE (13:09)
[2017-04-25] MEDS ORDERED: Magnesium Sulfate/Water 4 GM in Premix Bag 1 BAG IV ONE (13:25)
[2017-04-25] MEDS: Heparin Sodium 5,000 Units/ML Vial SUBCUT SCH (22:05)
[2017-04-25] MEDS: cefTRIAXone 1 GM in Premix Bag 1 BAG IV SCH (23:19)
--- NOTE | 2017-04-26 00:49 | PCM.SN ---
- Free Text/Narrative Note: Called by nursing as they have had 7 failed attempts at PIV start. 20g PIV x1 started to Lt AC without difficulty. Pt tolerated placement well.
[2017-04-26] MEDS: Acetaminophen/HYDROcodone 325-7.5 MG Tab PO PRN ×3 (04:16→20:41)
[2017-04-26 05:36] LABS: CHLORIDE,CL 105 mmol/L (98-110); SODIUM,NA 132 mmol/L (136-146)
[2017-04-26] MEDS ORDERED: Calcium Carbonate 500 MG Tab.Chew PO ONE (08:00)
[2017-04-26] MEDS ORDERED: Potassium Chloride 10% 20 MEQ/15 ML Soln 30 ML UD Cup PO ONE (08:00)
[2017-04-26] MEDS ORDERED: Magnesium Sulfate/Water 4 GM in Premix Bag 1 BAG IV ONE (08:00)
[2017-04-26] MEDS: Heparin Sodium 5,000 Units/ML Vial SUBCUT SCH ×2 (08:38→20:24)
--- NOTE | 2017-04-26 08:42 | PCM.PN ---
- General Info Date of Service: 04/26/17 Admission Dx/Problem (Free Text): Admission Diagnosis/Problem Admission Diagnosis/Problem UTI, Urinary tract infectious disease Subjective Update: Continues to feel tired this am, "mentally and physically". Can move legs more today than yesterday. Continues to deny numbness or tingling. - Patient Data Vitals - most recent: Last Vital Signs Temp 96.0 F 04/26/17 04:00 Pulse 97 04/26/17 04:00 Resp 18 04/26/17 04:00 BP 120/67 04/26/17 04:00 Pulse Ox 96 04/26/17 04:00 Orthostatic Blood Pressure [ 115/54 Sitting] Orthostatic Blood Pressure [ 120/63 Supine] Weight - most recent: 110 kg I&O - last 24 hours: Intake & Output 04/25/17 04/26/17 04/26/17 22:59 06:59 14:59 Intake Total 650 250 Output Total 1170 350 Balance -520 -100 Lab Results last 24 hrs: Laboratory Results - last 24 hr 04/25/17 04/25/17 04/26/17 Range/Units 04:20 04:20 05:15 WBC 9.75 (4.0-11.0) K/uL RBC 3.67 L (4.30-5.90) M/uL Hgb 10.0 L (12.0-16.0) g/dL Hct 29.9 L (36.0-46.0) % MCV 81.5 (80.0-98.0) fL MCH 27.2 (27.0-32.0) pg MCHC 33.4 (31.0-37.0) g/dL RDW Std Deviation 53.9 (28.0-62.0) fl RDW Coeff of Samantha 20 H (11.0-15.0) % Plt Count 294 (150-400) K/uL MPV 8.80 (7.40-12.00) fL Neut % (Auto) 61.4 (48.0-80.0) % Lymph % (Auto) 25.3 (16.0-40.0) % [place] % (Auto) 12.6 (0.0-15.0) % Eos % (Auto) 0.6 (0.0-7.0) % Baso % (Auto) 0.1 (0.0-1.5) % Neut # (Auto) 6.0 H (1.4-5.7) K/uL Lymph # (Auto) 2.5 H (0.6-2.4) K/uL [place] # (Auto) 1.2 H (0.0-0.8) K/uL Eos # (Auto) 0.1 (0.0-0.7) K/uL Baso # (Auto) 0.0 (0.0-0.1) K/uL Sodium (136-146) mmol/L Potassium (3.5-5.1) mmol/L Chloride (98-110) mmol/L Carbon Dioxide (21-31) mmol/L BUN (6.0-23.0) mg/dL Creatinine (0.6-1.5) mg/dL Est Cr Clr Drug Dosing mL/min Estimated GFR (MDRD) ml/min Glucose (60-110) mg/dL Calcium (8.8-10.8) mg/dL Phosphorus 3.4 (2.4-4.7) mg/dL Magnesium 1.0 L (1.5-2.3) mEq/L Total Bilirubin (0.1-1.5) mg/dL AST (5-40) IU/L ALT (8-54) IU/L Alkaline Phosphatase (40-150) B-Natriuretic Peptide 54 (<100) PG/ML Total Protein (6.0-8.0) g/dL Albumin (3.4-4.8) g/dL Globulin (2.0-3.5) g/dL Albumin/Globulin Ratio (1.3-2.8) /16/17 Range/Units 05:15 WBC (4.0-11.0) K/uL RBC (4.30-5.90) M/uL Hgb (12.0-16.0) g/dL Hct (36.0-46.0) % MCV (80.0-98.0) fL MCH (27.0-32.0) pg MCHC (31.0-37.0) g/dL RDW Std Deviation (28.0-62.0) fl RDW Coeff of Samantha (11.0-15.0) % Plt Count (150-400) K/uL MPV (7.40-12.00) fL Neut % (Auto) (48.0-80.0) % Lymph % (Auto) (16.0-40.0) % [place] % (Auto) (0.0-15.0) % Eos % (Auto) (0.0-7.0) % Baso % (Auto) (0.0-1.5) % Neut # (Auto) (1.4-5.7) K/uL Lymph # (Auto) (0.6-2.4) K/uL [place] # (Auto) (0.0-0.8) K/uL Eos # (Auto) (0.0-0.7) K/uL Baso # (Auto) (0.0-0.1) K/uL Sodium 132 L (136-146) mmol/L Potassium 3.3 L (3.5-5.1) mmol/L Chloride 105 (98-110) mmol/L Carbon Dioxide 18 L (21-31) mmol/L BUN 14 (6.0-23.0) mg/dL Creatinine 0.7 (0.6-1.5) mg/dL Est Cr Clr Drug Dosing 77.01 mL/min Estimated GFR (MDRD) > 60.0 ml/min Glucose 94 (60-110) mg/dL Calcium 6.6 L (8.8-10.8) mg/dL Phosphorus 3.3 (2.4-4.7) mg/dL Magnesium 1.4 L (1.5-2.3) mEq/L Total Bilirubin 0.8 (0.1-1.5) mg/dL AST 15 (5-40) IU/L ALT 28 (8-54) IU/L Alkaline Phosphatase 180 H (40-150) B-Natriuretic Peptide (<100) PG/ML Total Protein 4.3 L (6.0-8.0) g/dL Albumin 1.5 L (3.4-4.8) g/dL Globulin 2.8 (2.0-3.5) g/dL Albumin/Globulin Ratio 0.5 L (1.3-2.8) Zen Results last 24 hrs: Microbiology 04/25/17 12:51 Stool Occult Blood (ZEN) - Final Stool / Feces NEGATIVE OCCULT BLOOD Med Orders - Current: Current Medications Hydrocodone Bitart/Acetaminophen ([place] 325-7.5 Mg) 1 tab PO Q4H PRN PRN Reason: Pain Last Admin: 04/26/17 04:16 Dose: 1 tab Heparin Sodium (Porcine) (Heparin Sodium) 5,000 units SUBCUT Q12HR [facility] Last Admin: 04/26/17 08:38 Dose: 5,000 units Ceftriaxone Sodium/Dextrose 1 (gm/ Premix) 50 mls @ 100 mls/hr IV Q24H [facility] Last Admin: 04/25/17 23:19 Dose: 100 mls/hr Magnesium Sulfate 4 gm/ Premix 100 mls @ 50 mls/hr IV ONETIME ONE Stop: 04/26/17 09:59 Last Admin: 04/26/17 08:30 Dose: 50 mls/hr Discontinued Medications Calcium Carbonate/Glycine (Tums) 1,000 mg PO ONETIME ONE Stop: 04/25/17 09:03 Last Admin: 04/25/17 09:18 Dose: 1,000 mg Calcium Carbonate/Glycine (Tums) 1,000 mg PO ONETIME ONE Stop: 04/26/17 08:01 Last Admin: 04/26/17 08:28 Dose: 1,000 mg Furosemide (Lasix) 40 mg IVPUSH NOW ONE Stop: 04/25/17 13:10 Last Admin: 04/25/17 15:09 Dose: 40 mg Sodium Chloride (Normal Saline) 1,000 mls @ 999 mls/hr IV .Bolus ONE Stop: 04/24/17 22:24 Last Admin: 04/24/17 21:40 Dose: 999 mls/hr Ceftriaxone Sodium/Dextrose 1 (gm/ Premix) 50 mls @ 100 mls/hr IV ONETIME ONE Stop: 04/25/17 00:37 Last Admin: 04/25/17 00:49 Dose: 100 mls/hr Sodium Chloride (Normal Saline) 1,000 mls @ 125 mls/hr IV ASDIRECTED [facility] Last Admin: 04/25/17 10:22 Dose: 125 mls/hr Sodium Chloride (Normal Saline) 500 mls @ 999 mls/hr IV .BOLUS [facility] Last Admin: 04/25/17 10:19 Dose: 999 mls/hr Magnesium Sulfate 4 gm/ Premix 100 mls @ 50 mls/hr IV ONETIME ONE Stop: 04/25/17 15:24 Last Admin: 04/25/17 15:09 Dose: 50 mls/hr Potassium Chloride (Potassium Chloride) 40 meq PO ONETIME ONE Stop: 04/26/17 08:01 Last Admin: 04/26/17 08:28 Dose: 40 meq - Problem List & Annotations (1) UTI (urinary tract infection) SNOMED Code(s): 62903119 Code(s): N39.0 - URINARY TRACT INFECTION, SITE NOT SPECIFIED Status: Acute Current Visit: Yes Qualifiers: Urinary tract infection type: acute cystitis Hematuria presence: without hematuria Qualified Code(s): N30.00 - Acute cystitis without hematuria (2) Anasarca SNOMED Code(s): 944510842, 490389221 Code(s): R60.1 - GENERALIZED EDEMA Status: Acute Current Visit: Yes (3) Tachycardia SNOMED Code(s): 8068455 Code(s): R00.0 - TACHYCARDIA, UNSPECIFIED Status: Acute Current Visit: Yes (4) Generalized weakness SNOMED Code(s): 04553479 Code(s): R53.1 - WEAKNESS Status: Acute Current Visit: Yes (5) Anemia SNOMED Code(s): 477748244 Code(s): D64.9 - ANEMIA, UNSPECIFIED Status: Acute Current Visit: Yes (6) History of bowel resection SNOMED Code(s): 253716320 Code(s): Z92.89 - PERSONAL HISTORY OF OTHER MEDICAL TREATMENT Status: Chronic Current Visit: Yes (7) Obesity SNOMED Code(s): 206089432 Code(s): E66.9 - OBESITY, UNSPECIFIED Status: Chronic Current Visit: Yes - Problem List Review Problem List Initiated/Reviewed/Updated: Yes - My Orders Last 24 Hours: My Active Orders 04/25/17 10:04 Resuscitation Status Routine 04/25/17 10:07 Consult to Physical Therapy [PT Evaluation and Treatment] [CONS] Routine 04/25/17 13:03 EKG 12 Lead [EKG Documentation Completion] [RC] STAT 04/25/17 13:08 Echo Comp wo Cont [US] Urgent 04/25/17 13:36 Daily Weight [Height and Weight] [RC] DAILY 04/25/17 21:00 Heparin Sodium 5,000 units SUBCUT Q12HR 04/26/17 08:00 Magnesium Sulfate/Water [Magnesium Sulfate 4 GM in Water 100 ML] 4 gm Premix Bag 1 bag IV ONETIME 04/27/17 05:00 CBC WITH AUTO DIFF [HEME] DAILY COMPREHENSIVE METABOLIC PN,CMP [CHEM] DAILY MAGNESIUM [CHEM] DAILY PHOSPHORUS [CHEM] DAILY 04/28/17 05:00 CBC WITH AUTO DIFF [HEME] DAILY COMPREHENSIVE METABOLIC PN,CMP [CHEM] DAILY MAGNESIUM [CHEM] DAILY PHOSPHORUS [CHEM] DAILY 04/29/17 05:00 CBC WITH AUTO DIFF [HEME] DAILY COMPREHENSIVE METABOLIC PN,CMP [CHEM] DAILY MAGNESIUM [CHEM] DAILY PHOSPHORUS [CHEM] DAILY - Plan Plan:: This 62 year old female admitted with UTI and generalized weakness 1. UTI: UC Klebsiella pneumoniae. Continue Rocephin Pedroza placed in ED. BC pending. 2. Generalized weakness: Severe deconditioning secondary to recent hospitalization. Will have PT/OTevaluate and treat. Obtain orthostatics 3. Anemia: Likely secondary to recent surgery. Hemoccult negative. R hemicolectomy in [place] due to R colon ca, will obtain records from [place] to further clarify recent surgery and discharge plan. 4. Anasarca: good response from Lasix. Will continue this Lasix 40 mg BID today and monitor I/O strictly. Last "dry weight known was around 220 lbs. VTE prophylaxis: SCDs for now until rule out bleeding. Dispo: Pending improvement.
[2017-04-26] MEDS: Furosemide 40 MG/4 ML VIAL IVPUSH SCH ×2 (09:14→20:24)
[2017-04-26] MEDS: Ondansetron 4 MG/2 ML SDV IVPUSH PRN (14:09)
[2017-04-27] MEDS: cefTRIAXone 1 GM in Premix Bag 1 BAG IV SCH ×2 (01:07→23:05)
[2017-04-27] MEDS: Acetaminophen/HYDROcodone 325-7.5 MG Tab PO PRN ×4 (01:09→20:46)
[2017-04-27 06:30] LABS: CHLORIDE,CL 105 mmol/L (98-110); SODIUM,NA 133 mmol/L (136-146)
[2017-04-27] MEDS: Furosemide 40 MG/4 ML VIAL IVPUSH SCH ×2 (08:27→20:39)
[2017-04-27] MEDS: Heparin Sodium 5,000 Units/ML Vial SUBCUT SCH ×2 (08:27→20:36)
[2017-04-27] MEDS: Calcium Carbonate 500 MG Tab.Chew PO PRN (10:14)
--- NOTE | 2017-04-27 11:42 | PCM.PN ---
- Review of Systems Systems Review Comment:: no new complaints. reports getting stronger. - Patient Data Vitals - most recent: Last Vital Signs Temp 36.1 C 04/27/17 09:00 Pulse 93 04/27/17 09:00 Resp 16 04/27/17 09:00 BP 102/58 L 04/27/17 09:00 Pulse Ox 100 04/27/17 09:00 Orthostatic Blood Pressure [ 115/54 Sitting] Orthostatic Blood Pressure [ 120/63 Supine] Weight - most recent: 108.5 kg I&O - last 24 hours: Intake & Output 04/26/17 04/27/17 04/27/17 22:59 06:59 14:59 Intake Total 650 875 Output Total 1080 1000 Balance -430 -125 Lab Results last 24 hrs: Laboratory Results - last 24 hr 04/27/17 04/27/17 Range/Units 05:50 05:50 WBC 8.12 (4.0-11.0) K/uL RBC 3.34 L (4.30-5.90) M/uL Hgb 9.0 L (12.0-16.0) g/dL Hct 27.7 L (36.0-46.0) % MCV 82.9 (80.0-98.0) fL MCH 26.9 L (27.0-32.0) pg MCHC 32.5 (31.0-37.0) g/dL RDW Std Deviation 57.2 (28.0-62.0) fl RDW Coeff of Samantha 20 H (11.0-15.0) % Plt Count 304 (150-400) K/uL MPV 9.40 (7.40-12.00) fL Neut % (Auto) 62.5 (48.0-80.0) % Lymph % (Auto) 26.0 (16.0-40.0) % [place] % (Auto) 10.7 (0.0-15.0) % Eos % (Auto) 0.7 (0.0-7.0) % Baso % (Auto) 0.1 (0.0-1.5) % Neut # (Auto) 5.1 (1.4-5.7) K/uL Lymph # (Auto) 2.1 (0.6-2.4) K/uL [place] # (Auto) 0.9 H (0.0-0.8) K/uL Eos # (Auto) 0.1 (0.0-0.7) K/uL Baso # (Auto) 0.0 (0.0-0.1) K/uL Nucleated RBC % 0.0 /100WBC Nucleated RBCs # 0 K/uL Sodium 133 L (136-146) mmol/L Potassium 4.6 (3.5-5.1) mmol/L Chloride 105 (98-110) mmol/L Carbon Dioxide 21 (21-31) mmol/L BUN 12 (6.0-23.0) mg/dL Creatinine 0.7 (0.6-1.5) mg/dL Est Cr Clr Drug Dosing 77.01 mL/min Estimated GFR (MDRD) > 60.0 ml/min Glucose 79 (60-110) mg/dL Calcium 6.7 L (8.8-10.8) mg/dL Phosphorus 3.6 (2.4-4.7) mg/dL Magnesium 1.6 (1.5-2.3) mEq/L Total Bilirubin 0.6 (0.1-1.5) mg/dL AST 25 (5-40) IU/L ALT 29 (8-54) IU/L Alkaline Phosphatase 210 H (40-150) Total Protein 4.3 L (6.0-8.0) g/dL Albumin 1.4 L (3.4-4.8) g/dL Globulin 2.9 (2.0-3.5) g/dL Albumin/Globulin Ratio 0.5 L (1.3-2.8) Med Orders - Current: Current Medications Hydrocodone Bitart/Acetaminophen ([place] 325-7.5 Mg) 1 tab PO Q4H PRN PRN Reason: Pain Last Admin: 04/27/17 08:41 Dose: 1 tab Calcium Carbonate/Glycine (Tums) 1,000 mg PO Q2HR PRN PRN Reason: Indigestion Last Admin: 04/27/17 10:14 Dose: 1,000 mg Furosemide (Lasix) 40 mg IVPUSH Q12H [facility] Last Admin: 04/27/17 08:27 Dose: 40 mg Heparin Sodium (Porcine) (Heparin Sodium) 5,000 units SUBCUT Q12HR [facility] Last Admin: 04/27/17 08:27 Dose: 5,000 units Ceftriaxone Sodium/Dextrose 1 (gm/ Premix) 50 mls @ 100 mls/hr IV Q24H [facility] Last Admin: 04/27/17 01:07 Dose: 100 mls/hr Ondansetron HCl (Zofran) 4 mg IVPUSH Q4H PRN PRN Reason: Nausea Last Admin: 04/26/17 14:09 Dose: 4 mg Discontinued Medications Calcium Carbonate/Glycine (Tums) 1,000 mg PO ONETIME ONE Stop: 04/25/17 09:03 Last Admin: 04/25/17 09:18 Dose: 1,000 mg Calcium Carbonate/Glycine (Tums) 1,000 mg PO ONETIME ONE Stop: 04/26/17 08:01 Last Admin: 04/26/17 08:28 Dose: 1,000 mg Furosemide (Lasix) 40 mg IVPUSH NOW ONE Stop: 04/25/17 13:10 Last Admin: 04/25/17 15:09 Dose: 40 mg Sodium Chloride (Normal Saline) 1,000 mls @ 999 mls/hr IV .Bolus ONE Stop: 04/24/17 22:24 Last Admin: 04/24/17 21:40 Dose: 999 mls/hr Ceftriaxone Sodium/Dextrose 1 (gm/ Premix) 50 mls @ 100 mls/hr IV ONETIME ONE Stop: 04/25/17 00:37 Last Admin: 04/25/17 00:49 Dose: 100 mls/hr Sodium Chloride (Normal Saline) 1,000 mls @ 125 mls/hr IV ASDIRECTED [facility] Last Admin: 04/25/17 10:22 Dose: 125 mls/hr Sodium Chloride (Normal Saline) 500 mls @ 999 mls/hr IV .BOLUS [facility] Last Admin: 04/25/17 10:19 Dose: 999 mls/hr Magnesium Sulfate 4 gm/ Premix 100 mls @ 50 mls/hr IV ONETIME ONE Stop: 04/25/17 15:24 Last Admin: 04/25/17 15:09 Dose: 50 mls/hr Magnesium Sulfate 4 gm/ Premix 100 mls @ 50 mls/hr IV ONETIME ONE Stop: 04/26/17 09:59 Last Admin: 04/26/17 08:30 Dose: 50 mls/hr Potassium Chloride (Potassium Chloride) 40 meq PO ONETIME ONE Stop: 04/26/17 08:01 Last Admin: 04/26/17 08:28 Dose: 40 meq - Exam General: alert, oriented Lungs: Clear to auscultation, Normal respiratory effort Cardiovascular: Regular Rate, Regular Rhythm Abdomen: bowel sounds present, soft, no tenderness, no distension Extremities: edema (edema of thighs and buttocks +2) - Problem List Review Problem List Initiated/Reviewed/Updated: Yes - My Orders Last 24 Hours: My Active Orders 04/27/17 Dinner Low Salt [Sodium Restricted Diet] [DIET] - Plan Plan:: This 62 year old female admitted with UTI and generalized weakness 1. UTI: UC Klebsiella pneumoniae. Continue Rocephin Pedroza placed in ED. BC pending. 2. Generalized weakness: Severe deconditioning secondary to recent hospitalization. Continue PT 3. Fluid overload: continue lasix, Echocardiogram pending. Last "dry weight known was around 220 lbs. VTE prophylaxis: SCDs Dispo: Pending improvement.
[2017-04-27] MEDS ORDERED: Docusate Sodium 100 MG Cap PO PRN (22:47)
[2017-04-27] MEDS ORDERED: Bisacodyl 5 MG Tab PO PRN (22:47)
[2017-04-28] MEDS: Acetaminophen/HYDROcodone 325-7.5 MG Tab PO PRN ×2 (01:01→11:00)
[2017-04-28 06:51] LABS: CHLORIDE,CL 104 mmol/L (98-110); SODIUM,NA 134 mmol/L (136-146)
[2017-04-28] MEDS ORDERED: Magnesium Sulfate/Water 4 GM in Premix Bag 1 BAG IV ONE (09:08)
--- NOTE | 2017-04-28 09:12 | PCM.PN ---
- Review of Systems Systems Review Comment:: feeling stronger. - Patient Data Vitals - most recent: Last Vital Signs Temp 36.4 C 04/28/17 08:00 Pulse 90 04/28/17 08:00 Resp 14 04/28/17 08:00 BP 118/58 L 04/28/17 08:00 Pulse Ox 93 L 04/28/17 08:00 Orthostatic Blood Pressure [ 115/54 Sitting] Orthostatic Blood Pressure [ 120/63 Supine] Weight - most recent: 108 kg I&O - last 24 hours: Intake & Output 04/27/17 04/28/17 04/28/17 22:59 06:59 14:59 Intake Total 500 650 Output Total 850 650 Balance -350 0 Lab Results last 24 hrs: Laboratory Results - last 24 hr 04/28/17 04/28/17 Range/Units 05:35 05:35 WBC 6.97 (4.0-11.0) K/uL RBC 3.03 L (4.30-5.90) M/uL Hgb 8.3 L (12.0-16.0) g/dL Hct 24.8 L (36.0-46.0) % MCV 81.8 (80.0-98.0) fL MCH 27.4 (27.0-32.0) pg MCHC 33.5 (31.0-37.0) g/dL RDW Std Deviation 54.9 (28.0-62.0) fl RDW Coeff of Samantha 19 H (11.0-15.0) % Plt Count 334 (150-400) K/uL MPV 8.80 (7.40-12.00) fL Neut % (Auto) 62.5 (48.0-80.0) % Lymph % (Auto) 29.6 (16.0-40.0) % [place] % (Auto) 6.9 (0.0-15.0) % Eos % (Auto) 0.9 (0.0-7.0) % Baso % (Auto) 0.1 (0.0-1.5) % Neut # (Auto) 4.4 (1.4-5.7) K/uL Lymph # (Auto) 2.1 (0.6-2.4) K/uL [place] # (Auto) 0.5 (0.0-0.8) K/uL Eos # (Auto) 0.1 (0.0-0.7) K/uL Baso # (Auto) 0.0 (0.0-0.1) K/uL Nucleated RBC % 0.0 /100WBC Nucleated RBCs # 0 K/uL Sodium 134 L (136-146) mmol/L Potassium 3.2 L (3.5-5.1) mmol/L Chloride 104 (98-110) mmol/L Carbon Dioxide 22 (21-31) mmol/L BUN 10 (6.0-23.0) mg/dL Creatinine 0.7 (0.6-1.5) mg/dL Est Cr Clr Drug Dosing 77.01 mL/min Estimated GFR (MDRD) > 60.0 ml/min Glucose 76 (60-110) mg/dL Calcium 6.4 L (8.8-10.8) mg/dL Phosphorus 3.5 (2.4-4.7) mg/dL Magnesium 1.0 L (1.5-2.3) mEq/L Total Bilirubin 0.6 (0.1-1.5) mg/dL AST 21 (5-40) IU/L ALT 29 (8-54) IU/L Alkaline Phosphatase 216 H (40-150) Total Protein 4.0 L (6.0-8.0) g/dL Albumin 1.3 L (3.4-4.8) g/dL Globulin 2.7 (2.0-3.5) g/dL Albumin/Globulin Ratio 0.5 L (1.3-2.8) Med Orders - Current: Current Medications Hydrocodone Bitart/Acetaminophen ([place] 325-7.5 Mg) 1 tab PO Q4H PRN PRN Reason: Pain Last Admin: 04/28/17 01:01 Dose: 1 tab Bisacodyl (Dulcolax) 5 mg PO DAILY PRN PRN Reason: Constipation Calcium Carbonate/Glycine (Tums) 1,000 mg PO Q2HR PRN PRN Reason: Indigestion Last Admin: 04/27/17 10:14 Dose: 1,000 mg Docusate Sodium (Colace) 100 mg PO DAILY PRN PRN Reason: Constipation Last Admin: 04/27/17 23:04 Dose: 100 mg Furosemide (Lasix) 40 mg IVPUSH Q12H [facility] Last Admin: 04/27/17 20:39 Dose: 40 mg Heparin Sodium (Porcine) (Heparin Sodium) 5,000 units SUBCUT Q12HR REPLACED BY [facility] Last Admin: 04/27/17 20:36 Dose: 5,000 units Ceftriaxone Sodium/Dextrose 1 (gm/ Premix) 50 mls @ 100 mls/hr IV Q24H REPLACED BY [facility] Last Admin: 04/27/17 23:05 Dose: 100 mls/hr Ondansetron HCl (Zofran) 4 mg IVPUSH Q4H PRN PRN Reason: Nausea Last Admin: 04/26/17 14:09 Dose: 4 mg Discontinued Medications Calcium Carbonate/Glycine (Tums) 1,000 mg PO ONETIME ONE Stop: 04/25/17 09:03 Last Admin: 04/25/17 09:18 Dose: 1,000 mg Calcium Carbonate/Glycine (Tums) 1,000 mg PO ONETIME ONE Stop: 04/26/17 08:01 Last Admin: 04/26/17 08:28 Dose: 1,000 mg Furosemide (Lasix) 40 mg IVPUSH NOW ONE Stop: 04/25/17 13:10 Last Admin: 04/25/17 15:09 Dose: 40 mg Sodium Chloride (Normal Saline) 1,000 mls @ 999 mls/hr IV .Bolus ONE Stop: 04/24/17 22:24 Last Admin: 04/24/17 21:40 Dose: 999 mls/hr Ceftriaxone Sodium/Dextrose 1 (gm/ Premix) 50 mls @ 100 mls/hr IV ONETIME ONE Stop: 04/25/17 00:37 Last Admin: 04/25/17 00:49 Dose: 100 mls/hr Sodium Chloride (Normal Saline) 1,000 mls @ 125 mls/hr IV ASDIRECTED REPLACED BY [facility] Last Admin: 04/25/17 10:22 Dose: 125 mls/hr Sodium Chloride (Normal Saline) 500 mls @ 999 mls/hr IV .BOLUS REPLACED BY [facility] Last Admin: 04/25/17 10:19 Dose: 999 mls/hr Magnesium Sulfate 4 gm/ Premix 100 mls @ 50 mls/hr IV ONETIME ONE Stop: 04/25/17 15:24 Last Admin: 04/25/17 15:09 Dose: 50 mls/hr Magnesium Sulfate 4 gm/ Premix 100 mls @ 50 mls/hr IV ONETIME ONE Stop: 04/26/17 09:59 Last Admin: 04/26/17 08:30 Dose: 50 mls/hr Potassium Chloride (Potassium Chloride) 40 meq PO ONETIME ONE Stop: 04/26/17 08:01 Last Admin: 04/26/17 08:28 Dose: 40 meq - Exam General: alert, oriented Neck: supple Lungs: Clear to auscultation, Normal respiratory effort Cardiovascular: Regular Rate, Regular Rhythm Abdomen: bowel sounds present, soft, no tenderness, no distension Extremities: edema (+2 edema extending to abdomen) Skin: warm, dry, intact - Problem List Review Problem List Initiated/Reviewed/Updated: Yes - My Orders Last 24 Hours: My Active Orders 04/27/17 22:47 Bisacodyl [Dulcolax] 5 mg PO DAILY PRN Docusate Sodium [Colace] 100 mg PO DAILY PRN 04/27/17 Dinner Low Salt [Sodium Restricted Diet] [DIET] 04/28/17 09:08 Magnesium Sulfate/Water [Magnesium Sulfate 4 GM in Water 100 ML] 4 gm Premix Bag 1 bag IV ONETIME Potassium Chloride [Klor-Con M20] 40 meq PO ONETIME ONE 04/28/17 Lunch Regular Diet [DIET] - Plan Plan:: This 62 year old female admitted with UTI and generalized weakness 1. UTI: UC Klebsiella pneumoniae. Continue Rocephin Pedroza placed in ED. 2. Generalized weakness: Severe deconditioning secondary to recent hospitalization. Continue PT, patient will likely need SNF for rehab 3. Fluid overload: continue lasix, Echocardiogram pending. Last "dry weight known was around 220 lbs. VTE prophylaxis: heparin
[2017-04-28] MEDS: Heparin Sodium 5,000 Units/ML Vial SUBCUT SCH ×2 (09:21→20:41)
[2017-04-28] MEDS: Furosemide 40 MG/4 ML VIAL IVPUSH SCH ×2 (09:21→20:41)
[2017-04-28] MEDS: Potassium Chloride 20 MEQ Tab.ER PO ONE ×2 (09:22→10:00)
[2017-04-28] MEDS ORDERED: Potassium Chloride 10% 20 MEQ/15 ML Soln 30 ML UD Cup PO ONE (10:00)
[2017-04-28] MEDS ORDERED: Calcium Carbonate 500 MG Tab.Chew PO ONE ×2 (10:27→17:00)
[2017-04-28] MEDS: Ondansetron 4 MG/2 ML SDV IVPUSH PRN ×2 (11:34→17:08)
[2017-04-28] MEDS: Calcium Carbonate 500 MG Tab.Chew PO PRN (12:40)
[2017-04-28] MEDS: Promethazine 25 MG/ML SDV IM PRN (15:26)
[2017-04-28] MEDS: cefTRIAXone 1 GM in Premix Bag 1 BAG IV SCH (23:13)
[2017-04-29] MEDS: Acetaminophen/HYDROcodone 325-7.5 MG Tab PO PRN ×4 (00:10→23:01)
[2017-04-29 04:41] LABS: CHLORIDE,CL 103 mmol/L (98-110); SODIUM,NA 135 mmol/L (136-146)
[2017-04-29] MEDS ORDERED: Calcium Carbonate 500 MG Tab.Chew PO ONE (08:17)
[2017-04-29] MEDS ORDERED: Magnesium Sulfate/Water 4 GM in Premix Bag 1 BAG IV ONE (08:18)
[2017-04-29] MEDS: Furosemide 40 MG/4 ML VIAL IVPUSH SCH ×2 (08:26→20:16)
[2017-04-29] MEDS ORDERED: Potassium Chloride 10% 20 MEQ/15 ML Soln 30 ML UD Cup PO SCH (08:30)
[2017-04-29] MEDS: Heparin Sodium 5,000 Units/ML Vial SUBCUT SCH ×2 (08:43→20:16)
[2017-04-29] MEDS ORDERED: Cephalexin 500 MG Cap PO SCH (09:00)
[2017-04-29] MEDS: Potassium Chloride 20 MEQ Tab.ER PO SCH ×2 (11:08→16:43)
[2017-04-29] MEDS: Sulfamethoxazole/Trimethoprim 800-160 MG Tab PO SCH ×2 (12:06→20:17)
--- NOTE | 2017-04-29 12:34 | PCM.PN ---
- General Info Date of Service: 04/29/17 Admission Dx/Problem (Free Text): Admission Diagnosis/Problem Admission Diagnosis/Problem UTI, Urinary tract infectious disease Subjective Update: Feels she is getting a little stronger, still needed assistance of PAL lift to get to chair or use commode. Denies chest pain or SOB. Intermittent abdominal/ incisional pain. report feet and lower legs are stronger, "now its just my thighs that need to get stronger." Functional Status: Reports: pain controlled, tolerating diet. Denies: ambulating - Review of Systems General: Reports: Weakness Pulmonary: Denies: shortness of breath, cough, sputum Cardiovascular: Denies: Chest Pain, Palpitations, Edema Gastrointestinal: Reports: Abdominal pain (incisional), Nausea (intermittently, which is baseline) Skin: Reports: other (incision draining) - Patient Data Vitals - most recent: Last Vital Signs Temp 97.5 F 04/29/17 08:00 Pulse 93 04/29/17 08:00 Resp 16 04/29/17 08:00 BP 112/64 04/29/17 08:00 Pulse Ox 98 04/29/17 08:00 Orthostatic Blood Pressure [ 115/54 Sitting] Orthostatic Blood Pressure [ 120/63 Supine] Weight - most recent: 109 kg I&O - last 24 hours: Intake & Output 04/28/17 04/29/17 04/29/17 22:59 06:59 14:59 Intake Total 400 550 100 Output Total 1250 1100 Balance -850 -550 100 Lab Results last 24 hrs: Laboratory Results - last 24 hr 04/29/17 04/29/17 Range/Units 04:10 04:10 WBC 7.50 (4.0-11.0) K/uL RBC 3.16 L (4.30-5.90) M/uL Hgb 8.6 L (12.0-16.0) g/dL Hct 26.0 L (36.0-46.0) % MCV 82.3 (80.0-98.0) fL MCH 27.2 (27.0-32.0) pg MCHC 33.1 (31.0-37.0) g/dL RDW Std Deviation 55.6 (28.0-62.0) fl RDW Coeff of Samantha 20 H (11.0-15.0) % Plt Count 355 (150-400) K/uL MPV 8.80 (7.40-12.00) fL Neut % (Auto) 64.1 (48.0-80.0) % Lymph % (Auto) 27.9 (16.0-40.0) % [place] % (Auto) 7.5 (0.0-15.0) % Eos % (Auto) 0.4 (0.0-7.0) % Baso % (Auto) 0.1 (0.0-1.5) % Neut # (Auto) 4.8 (1.4-5.7) K/uL Lymph # (Auto) 2.1 (0.6-2.4) K/uL [place] # (Auto) 0.6 (0.0-0.8) K/uL Eos # (Auto) 0.0 (0.0-0.7) K/uL Baso # (Auto) 0.0 (0.0-0.1) K/uL Nucleated RBC % 0.0 /100WBC Nucleated RBCs # 0 K/uL Sodium 135 L (136-146) mmol/L Potassium 3.4 L (3.5-5.1) mmol/L Chloride 103 (98-110) mmol/L Carbon Dioxide 25 (21-31) mmol/L BUN 10 (6.0-23.0) mg/dL Creatinine 0.7 (0.6-1.5) mg/dL Est Cr Clr Drug Dosing 77.01 mL/min Estimated GFR (MDRD) > 60.0 ml/min Glucose 77 (60-110) mg/dL Calcium 6.4 L (8.8-10.8) mg/dL Phosphorus 3.4 (2.4-4.7) mg/dL Magnesium 1.2 L (1.5-2.3) mEq/L Total Bilirubin 0.7 (0.1-1.5) mg/dL AST 18 (5-40) IU/L ALT 32 (8-54) IU/L Alkaline Phosphatase 239 H (40-150) Total Protein 3.8 L (6.0-8.0) g/dL Albumin 1.4 L (3.4-4.8) g/dL Globulin 2.4 (2.0-3.5) g/dL Albumin/Globulin Ratio 0.6 L (1.3-2.8) Med Orders - Current: Current Medications Hydrocodone Bitart/Acetaminophen (Uriah 325-7.5 Mg) 1 tab PO Q4H PRN PRN Reason: Pain Last Admin: 04/29/17 09:40 Dose: 1 tab Bisacodyl (Dulcolax) 5 mg PO DAILY PRN PRN Reason: Constipation Last Admin: 04/28/17 09:22 Dose: 5 mg Calcium Carbonate/Glycine (Tums) 1,000 mg PO Q2HR PRN PRN Reason: Indigestion Last Admin: 04/28/17 12:40 Dose: 1,000 mg Docusate Sodium (Colace) 100 mg PO DAILY PRN PRN Reason: Constipation Last Admin: 04/27/17 23:04 Dose: 100 mg Furosemide (Lasix) 40 mg IVPUSH Q12H [facility] Last Admin: 04/29/17 08:26 Dose: 40 mg Heparin Sodium (Porcine) (Heparin Sodium) 5,000 units SUBCUT Q12HR [facility] Last Admin: 04/29/17 08:43 Dose: 5,000 units Ondansetron HCl (Zofran) 4 mg IVPUSH Q4H PRN PRN Reason: Nausea Last Admin: 04/28/17 17:08 Dose: 4 mg Potassium Chloride (Klor-Con M20) 40 meq PO BID@1100,1700 [facility] Stop: 04/29/17 17:01 Last Admin: 04/29/17 11:08 Dose: 40 meq Promethazine HCl (Phenergan) 12.5 mg IM Q6H PRN PRN Reason: Nausea/Vomiting Last Admin: 04/28/17 15:26 Dose: 12.5 mg Trimethoprim/Sulfamethoxazole (Septra Ds) 1 tab PO BID [facility] Last Admin: 04/29/17 12:06 Dose: 1 tab Discontinued Medications Calcium Carbonate/Glycine (Tums) 1,000 mg PO ONETIME ONE Stop: 04/25/17 09:03 Last Admin: 04/25/17 09:18 Dose: 1,000 mg Calcium Carbonate/Glycine (Tums) 1,000 mg PO ONETIME ONE Stop: 04/26/17 08:01 Last Admin: 04/26/17 08:28 Dose: 1,000 mg Calcium Carbonate/Glycine (Tums) 1,000 mg PO ONETIME ONE Stop: 04/28/17 10:28 Last Admin: 04/28/17 10:39 Dose: Not Given Calcium Carbonate/Glycine (Tums) 1,000 mg PO ONETIME ONE Stop: 04/28/17 17:01 Last Admin: 04/28/17 17:09 Dose: 1,000 mg Calcium Carbonate/Glycine (Tums) 1,000 mg PO ONETIME ONE Stop: 04/29/17 08:18 Last Admin: 04/29/17 08:24 Dose: 1,000 mg Cephalexin (Keflex) 500 mg PO Q12HR [facility]ASON Last Admin: 04/29/17 08:24 Dose: 500 mg Furosemide (Lasix) 40 mg IVPUSH NOW ONE Stop: 04/25/17 13:10 Last Admin: 04/25/17 15:09 Dose: 40 mg Sodium Chloride (Normal Saline) 1,000 mls @ 999 mls/hr IV .Bolus ONE Stop: 04/24/17 22:24 Last Admin: 04/24/17 21:40 Dose: 999 mls/hr Ceftriaxone Sodium/Dextrose 1 (gm/ Premix) 50 mls @ 100 mls/hr IV ONETIME ONE Stop: 04/25/17 00:37 Last Admin: 04/25/17 00:49 Dose: 100 mls/hr Sodium Chloride (Normal Saline) 1,000 mls @ 125 mls/hr IV ASDIRECTED [facility] Last Admin: 04/25/17 10:22 Dose: 125 mls/hr Ceftriaxone Sodium/Dextrose 1 (gm/ Premix) 50 mls @ 100 mls/hr IV Q24H [facility] Last Admin: 04/28/17 23:13 Dose: 100 mls/hr Sodium Chloride (Normal Saline) 500 mls @ 999 mls/hr IV .BOLUS [facility] Last Admin: 04/25/17 10:19 Dose: 999 mls/hr Magnesium Sulfate 4 gm/ Premix 100 mls @ 50 mls/hr IV ONETIME ONE Stop: 04/25/17 15:24 Last Admin: 04/25/17 15:09 Dose: 50 mls/hr Magnesium Sulfate 4 gm/ Premix 100 mls @ 50 mls/hr IV ONETIME ONE Stop: 04/26/17 09:59 Last Admin: 04/26/17 08:30 Dose: 50 mls/hr Magnesium Sulfate 4 gm/ Premix 100 mls @ 50 mls/hr IV ONETIME ONE Stop: 04/28/17 11:07 Last Admin: 04/28/17 09:22 Dose: 50 mls/hr Magnesium Sulfate 4 gm/ Premix 100 mls @ 50 mls/hr IV ONETIME ONE Stop: 04/29/17 10:17 Last Admin: 04/29/17 08:38 Dose: 50 mls/hr Potassium Chloride (Potassium Chloride) 40 meq PO ONETIME ONE Stop: 04/26/17 08:01 Last Admin: 04/26/17 08:28 Dose: 40 meq Potassium Chloride (Klor-Con M20) 40 meq PO ONETIME ONE Stop: 04/28/17 09:11 Last Admin: 04/28/17 10:00 Dose: Not Given Potassium Chloride (Potassium Chloride) 40 meq PO ONETIME ONE Stop: 04/28/17 10:01 Last Admin: 04/28/17 10:03 Dose: 40 meq Potassium Chloride (Potassium Chloride) 40 meq PO BID@0830,1700 [facility]ASON Stop: 04/29/17 17:01 Last Admin: 04/29/17 08:24 Dose: 40 meq - Exam General: alert, oriented, cooperative, no acute distress Lungs: Clear to auscultation, Normal respiratory effort Cardiovascular: Regular Rate, Regular Rhythm Abdomen: bowel sounds present, soft, no distension, tenderness (near incision only) Extremities: edema (+3 pitting edema to bilateral thighs and hips, extending down edema dimishes to lower legs and feet to almost nothing.) Wound/Incisions: drainage (to distal end of midline incision, serousang, culture obtained. packing placed and covered with gauze.), erythema (scant erythema surrounding distal end of insicion, approximately .5 cm from draining open area. ) Neurological: no new focal deficit Psy/Mental Status: alert, normal affect, normal mood - Problem List & Annotations (1) UTI (urinary tract infection) SNOMED Code(s): 52781133 Code(s): N39.0 - URINARY TRACT INFECTION, SITE NOT SPECIFIED Status: Acute Current Visit: Yes Qualifiers: Urinary tract infection type: acute cystitis Hematuria presence: without hematuria Qualified Code(s): N30.00 - Acute cystitis without hematuria (2) Anasarca SNOMED Code(s): 889537631, 102245633 Code(s): R60.1 - GENERALIZED EDEMA Status: Acute Current Visit: Yes (3) Tachycardia SNOMED Code(s): 8409876 Code(s): R00.0 - TACHYCARDIA, UNSPECIFIED Status: Resolved Current Visit : Yes (4) Generalized weakness SNOMED Code(s): 84705366 Code(s): R53.1 - WEAKNESS Status: Acute Current Visit: Yes (5) Physical deconditioning SNOMED Code(s): 26193823173104 Code(s): R53.81 - OTHER MALAISE Status: Acute Current Visit: Yes (6) Anemia SNOMED Code(s): 494789521 Code(s): D64.9 - ANEMIA, UNSPECIFIED Status: Acute Current Visit: Yes (7) History of bowel resection SNOMED Code(s): 592352910 Code(s): Z92.89 - PERSONAL HISTORY OF OTHER MEDICAL TREATMENT Status: Chronic Current Visit: Yes (8) Obesity SNOMED Code(s): 155780534 Code(s): E66.9 - OBESITY, UNSPECIFIED Status: Chronic Current Visit: Yes - Problem List Review Problem List Initiated/Reviewed/Updated: Yes - My Orders Last 24 Hours: My Active Orders 04/29/17 10:55 CULTURE WOUND [RM] Routine 04/29/17 11:00 Potassium Chloride [Klor-Con M20] 40 meq PO BID@1100,1700 04/29/17 11:15 Sulfamethoxazole/Trimethoprim [Septra DS] 1 tab PO BID - Plan Plan:: This 62 year old female admitted with UTI and generalized weakness 1. UTI: UC Klebsiella pneumoniae. Will switch to Bactrim PO, due to draining abdominal incision. 2. Generalized weakness: Severe deconditioning secondary to recent hospitalization. Continue PT, patient will likely need SNF for rehab. Consult OT as well for ADLs assessment. patient would like to speak with Neurology regarding bilateral leg weakness. 3. Fluid overload: Continue lasix, Echocardiogram pending. Last dry weight known was around 220 lbs. Strict I/O 4. Abdominal incision drainage: Spoke with Dr Dela Cruz, surgeon who performed R hemicolectomy beginning of April, as per description he feels this is likely some tissue necrosis, nothing to worry about. He recommended opening the site slightly with a q tip and place packing. This was done. Wound culture also sent. Continue antibiotics as above, Bactrim DS BID. VTE prophylaxis: Heparin Dispo: plan for transfer to SNF in next 1-2 days.
--- NOTE | 2017-04-29 14:01 | PCM.CONS ---
[id number] Diagnosis/Problem Admission Diagnosis/Problem UTI, Urinary tract infectious disease Source of Information: Patient, EMS - History of Present Illness Initial Comments - Free Text/Narative: On April 12, she presented to [facility] ED with abdominal pain, n/v found to have bowel obstruction. She was transferred to [facility] where she underwent bowel resection. She notes that she went when she woke up from surgery, she could not move her legs at all. 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 She does not recall if there was any loss of sensation. Leg movement improve such that she was able to walk, and she had been doing exercises at home , but has remained weak. Last week the weakness worsened. She endorses chronic back pain with no recent change and no radiations. . She has had urinary and stool urgency since the bypass 20 years ago. No urinary incontinence. She denies upper limb weakness. Sensation is normal. She presented to the emergency department on April 24 feeling very unsteady and lightheaded. She was found to have evidence of urinary tract infection. She was also noted to have anasarca, albumin of 1.5. Magnesium was low and was supplemented. At baseline, she has chronic back pain and has difficulty getting up from low chairs. Bilateral Leg Pain Score (Numeric/FACES): 4 Abdomen Pain Score (Numeric/FACES): 4 no pain Pain Score (Numeric/FACES): 0 - Related Data Allergies/Adverse Reactions: Allergies Allergy/AdvReac Type Severity Reaction Status Date / Time myacin Allergy Other Uncoded 04/24/17 21:13 Home Medications: Home Meds Hydrocodone/Acetaminophen [Hydrocodon-Acetaminoph 7.5-325] 7.5 - 325 mg PO Q4HR PRN 04/12/17 [History] Past Medical History Cardiovascular History: Reports: None. Denies: Blood Clots/VTE/DVT, CAD, High Cholesterol, Hypertension, DC Respiratory History: Reports: None. Denies: COPD, PE Gastrointestinal History: Reports: Colon Polyp, Other (See Below) Other Gastrointestinal History: bowel obstruction with recent resection Genitourinary History: Reports: None. Denies: Chronic Renal Insuffiency [employer] OPERATOR History: Reports: , Other (See Below) Other OB/BYN History: x2 Musculoskeletal History: Reports: Osteoporosis Neurological History: Reports: None. Denies: CVA, Headaches, Chronic, MS, TIA Psychiatric History: Reports: None Endocrine/Metabolic History: Reports: Obesity/BMI 30+. Denies: Diabetes, Type II, Hypothyroidism Hematologic History: Reports: None Immunologic History: Reports: None Oncologic (Cancer) History: Reports: Colon, Other (See Below) Other Oncologic History: skin cancer Dermatologic History: Reports: None - Infectious Disease History Infectious Disease History: Reports: Chicken Pox, Mumps, Shingles - Past Surgical History HEENT Surgical History: Reports: Tonsillectomy GI Surgical History: Reports: Appendectomy, Colon (resection) Other GI Surgeries/Procedures: gastric bypass x 2 Female Surgical History: Reports: Section Other Musculoskeletal Surgeries/Procedures:: douglas right knee and right hip Social & Family History - Family History Family Medical History: Noncontributory - Tobacco Use Smoking Status *Q: Never Smoker Second Hand Smoke Exposure: No - Caffeine Use Caffeine Use: Reports: None - Alcohol Use Days Per Week of Alcohol Use: 2 Number of Drinks Per Day: 1 Total Drinks Per Week: 2 Date of Last Drink: 03/26/17 - Recreational Drug Use Recreational Drug Use: No - Living Situation & Occupation Living situation: Reports: Occupation: Unemployed H&P Review of Systems - Review of Systems: Review Of Systems: ROS reveals no pertinent complaints other than HPI. Exam - Exam Exam: See Below - Vital Signs Vital Signs: Last Vital Signs Temp 36.1 C 04/29/17 12:00 Pulse 93 04/29/17 12:00 Resp 22 H 04/29/17 12:00 BP 120/59 L 04/29/17 12:00 Pulse Ox 99 04/29/17 12:00 Orthostatic Blood Pressure [ 115/54 Sitting] Orthostatic Blood Pressure [ 120/63 Supine] Weight: 109 kg - Exam Physical Exam Comments:: Constitutional: No acute distress Psychiatric: Mood/Affect: normal/appropriate Neurological: Mental Status: General: Normal activity, good hygiene, appropriate appearance. Level of consciousness: Awake, alert. Concentration/Attention Span: Normal. Comprehension/Praxis: Able to perform a three step command. Fund of Knowledge/memory: Adequate recent and remote recall. Language: Fluent and articulate without evidence of aphasia Thought Content: Normal. Insight/Judgement: Normal. Cranial Nerves: Pupils equally round and reactive to light. Visual mcqueen full to confrontation. Gaze conjugate, EOMI. Sensation intact and symmetric to light touch. Facial strength is full and symmetric. Palate elevates symmetrically. Normal shrug bilaterally. Tongue protrudes midline Motor: Normal tone in all groups. No drift. Power using MRC scale and R/L notation as follows: Deltoid 4/4, biceps 4/4, triceps 4/4, wrist extensors 5/5, wrist flexors 5/5, finger extensors 5-/5-, FDI 4+/4+, hip flexors 2/2, hip abductors 5-/5-, hip adductors 5-/5-, knee extensors 5/5, knee flexors 5/5, ankle dorsiflexors 5/5, Sensation: Sensation is intact to pinprick, vibratory sense Deep tendon reflexes: 3+ in upper limbs, 2+ at right knee, 1+ at ankles, left knee jerk not obtained. Plantar responses are flexor bilaterally. Coordination: Finger to nose intack, heel to reyes impaired due to weakness. Gait: Normal casual gait. Normal tandem HEENT: Eyes: non icteric, Mouth: moist mucus membranes Cardiovascular: RRR Respiratory: clear lungs GI: mildly tender Skin: no visible rash - Patient Data Lab Results Last 24 hrs: Laboratory Results - last 24 hr 04/29/17 04/29/17 Range/Units 04:10 04:10 WBC 7.50 (4.0-11.0) K/uL RBC 3.16 L (4.30-5.90) M/uL Hgb 8.6 L (12.0-16.0) g/dL Hct 26.0 L (36.0-46.0) % MCV 82.3 (80.0-98.0) fL MCH 27.2 (27.0-32.0) pg MCHC 33.1 (31.0-37.0) g/dL RDW Std Deviation 55.6 (28.0-62.0) fl RDW Coeff of Samantha 20 H (11.0-15.0) % Plt Count 355 (150-400) K/uL MPV 8.80 (7.40-12.00) fL Neut % (Auto) 64.1 (48.0-80.0) % Lymph % (Auto) 27.9 (16.0-40.0) % [place] % (Auto) 7.5 (0.0-15.0) % Eos % (Auto) 0.4 (0.0-7.0) % Baso % (Auto) 0.1 (0.0-1.5) % Neut # (Auto) 4.8 (1.4-5.7) K/uL Lymph # (Auto) 2.1 (0.6-2.4) K/uL [place] # (Auto) 0.6 (0.0-0.8) K/uL Eos # (Auto) 0.0 (0.0-0.7) K/uL Baso # (Auto) 0.0 (0.0-0.1) K/uL Nucleated RBC % 0.0 /100WBC Nucleated RBCs # 0 K/uL Sodium 135 L (136-146) mmol/L Potassium 3.4 L (3.5-5.1) mmol/L Chloride 103 (98-110) mmol/L Carbon Dioxide 25 (21-31) mmol/L BUN 10 (6.0-23.0) mg/dL Creatinine 0.7 (0.6-1.5) mg/dL Est Cr Clr Drug Dosing 77.01 mL/min Estimated GFR (MDRD) > 60.0 ml/min Glucose 77 (60-110) mg/dL Calcium 6.4 L (8.8-10.8) mg/dL Phosphorus 3.4 (2.4-4.7) mg/dL Magnesium 1.2 L (1.5-2.3) mEq/L Total Bilirubin 0.7 (0.1-1.5) mg/dL AST 18 (5-40) IU/L ALT 32 (8-54) IU/L Alkaline Phosphatase 239 H (40-150) Total Protein 3.8 L (6.0-8.0) g/dL Albumin 1.4 L (3.4-4.8) g/dL Globulin 2.4 (2.0-3.5) g/dL Albumin/Globulin Ratio 0.6 L (1.3-2.8) Result Diagrams: 04/30/17 04:38 04/30/17 04:38 Consult PN Assessment/Plan Procedures: Procedures ASSAY OF AMYLASE (04/12/17) ASSAY OF LIPASE (04/12/17) ASSAY OF TROPONIN QUANT (04/12/17) COMPLETE CBC W/AUTO DIFF WBC (04/12/17) COMPREHEN METABOLIC PANEL (04/12/17) CT ABD & PELV W/CONTRAST (04/12/17) EMERGENCY DEPT VISIT (04/12/17) HYDRATE IV INFUSION ADD-ON (04/12/17) ROUTINE VENIPUNCTURE (04/12/17) THER/PROPH/DIAG INJ IV PUSH (04/12/17) TX/PRO/DX INJ NEW DRUG ADDON (04/12/17) TX/PRO/DX INJ SAME DRUG DIESEL MACHINIST (04/12/17) URINALYSIS AUTO W/SCOPE (04/12/17) (1) Generalized weakness SNOMED Code(s): 00471127 Code(s): R53.1 - WEAKNESS Current Visit: Yes Assessment:: Examination reveals mild proximal upper and lower limb weakness. Weakness likely multifactorial due to malnutrition (low albumin) recent surgery, deconditioning, superimposed UTI. Hip flexion limited by weakness and edema. I would check CK given proximal pattern and concern for myopathy. Otherwise, I agree with PT. Addendum 04/30/2017 - CK normal. No further evaluation recommendations at this time. Problem List Initiated/Reviewed/Updated: Yes
[2017-04-29] MEDS: Ondansetron 4 MG/2 ML SDV IVPUSH PRN (15:29)
--- NOTE | 2017-04-29 15:37 | ECHO ---
EXAM DATE: 04/25/17 PATIENT'S AGE: 62 The echocardiogram report can be seen in this patient's EMR (Electronic Medical Record) in the Reports section. YOJANA
[2017-04-29] MEDS: Docusate Sodium 100 MG Cap PO SCH (20:17)
[2017-04-30] MEDS: Acetaminophen/HYDROcodone 325-7.5 MG Tab PO PRN ×3 (04:34→22:13)
[2017-04-30 05:24] LABS: CHLORIDE,CL 103 mmol/L (98-110); SODIUM,NA 136 mmol/L (136-146)
--- NOTE | 2017-04-30 08:18 | PCM.PN ---
- General Info Date of Service: 04/30/17 Admission Dx/Problem (Free Text): Admission Diagnosis/Problem Admission Diagnosis/Problem UTI, Urinary tract infectious disease Subjective Update: Appears to be sad today. She denies chest pain, but is having some pain to her thighs and upper back. Denies SOB or palpitations. She is not happy about mcqueen being removed. She isn't happy with getting up and sitting in the chair. Functional Status: Reports: pain controlled, tolerating diet - Review of Systems General: Reports: No Symptoms. Denies: Fever, Weakness, Fatigue Pulmonary: Reports: no symptoms. Denies: shortness of breath, cough, sputum Cardiovascular: Reports: Edema. Denies: Chest Pain, Palpitations Gastrointestinal: Reports: Abdominal pain, Nausea, Vomiting. Denies: Constipation, Diarrhea Genitourinary: Reports: no symptoms. Denies: dysuria, frequency Musculoskeletal: Reports: no symptoms, back pain (chronic) Skin: Reports: no symptoms Neurological: Reports: No Symptoms Psychiatric: Reports: no symptoms - Patient Data Vitals - most recent: Last Vital Signs Temp 97.5 F 04/30/17 04:00 Pulse 92 04/30/17 04:00 Resp 14 04/30/17 04:00 BP 117/54 L 04/30/17 04:00 Pulse Ox 100 04/30/17 04:00 Orthostatic Blood Pressure [ 115/54 Sitting] Orthostatic Blood Pressure [ 120/63 Supine] Weight - most recent: 108.5 kg I&O - last 24 hours: Intake & Output 04/29/17 04/30/17 04/30/17 22:59 06:59 14:59 Intake Total 460 400 Output Total 500 700 Balance -40 -300 Lab Results last 24 hrs: Laboratory Results - last 24 hr 04/29/17 04/30/17 04/30/17 Range/Units 04:10 04:38 04:38 WBC 10.16 (4.0-11.0) K/uL RBC 3.13 L (4.30-5.90) M/uL Hgb 8.5 L (12.0-16.0) g/dL Hct 26.2 L (36.0-46.0) % MCV 83.7 (80.0-98.0) fL MCH 27.2 (27.0-32.0) pg MCHC 32.4 (31.0-37.0) g/dL RDW Std Deviation 57.3 (28.0-62.0) fl RDW Coeff of Samantha 20 H (11.0-15.0) % Plt Count 362 (150-400) K/uL MPV 8.80 (7.40-12.00) fL Neut % (Auto) 74.5 (48.0-80.0) % Lymph % (Auto) 18.9 (16.0-40.0) % [place] % (Auto) 6.3 (0.0-15.0) % Eos % (Auto) 0.2 (0.0-7.0) % Baso % (Auto) 0.1 (0.0-1.5) % Neut # (Auto) 7.6 H (1.4-5.7) K/uL Lymph # (Auto) 1.9 (0.6-2.4) K/uL [place] # (Auto) 0.6 (0.0-0.8) K/uL Eos # (Auto) 0.0 (0.0-0.7) K/uL Baso # (Auto) 0.0 (0.0-0.1) K/uL Nucleated RBC % 0.0 /100WBC Nucleated RBCs # 0 K/uL Sodium 136 (136-146) mmol/L Potassium 4.1 (3.5-5.1) mmol/L Chloride 103 (98-110) mmol/L Carbon Dioxide 26 (21-31) mmol/L BUN 9 (6.0-23.0) mg/dL Creatinine 0.7 (0.6-1.5) mg/dL Est Cr Clr Drug Dosing 77.01 mL/min Estimated GFR (MDRD) > 60.0 ml/min Glucose 76 (60-110) mg/dL Calcium 6.6 L (8.8-10.8) mg/dL Magnesium 1.5 (1.5-2.3) mEq/L Total Bilirubin 0.6 (0.1-1.5) mg/dL AST 19 (5-40) IU/L ALT 35 (8-54) IU/L Alkaline Phosphatase 241 H (40-150) Creatine Kinase 58 (9-236) IU/L Total Protein 3.8 L (6.0-8.0) g/dL Albumin 1.2 L (3.4-4.8) g/dL Globulin 2.6 (2.0-3.5) g/dL Albumin/Globulin Ratio 0.5 L (1.3-2.8) Med Orders - Current: Current Medications Hydrocodone Bitart/Acetaminophen ([place] 325-7.5 Mg) 1 tab PO Q4H PRN PRN Reason: Pain Last Admin: 04/30/17 04:34 Dose: 1 tab Bisacodyl (Dulcolax) 5 mg PO DAILY PRN PRN Reason: Constipation Last Admin: 04/28/17 09:22 Dose: 5 mg Calcium Carbonate/Glycine (Tums) 1,000 mg PO Q2HR PRN PRN Reason: Indigestion Last Admin: 04/28/17 12:40 Dose: 1,000 mg Calcium Gluconate (Calcium Gluconate) 1 gm IV ONETIME ONE Stop: 04/30/17 08:31 Docusate Sodium (Colace) 100 mg PO BID [facility] Last Admin: 04/29/17 20:17 Dose: 100 mg Furosemide (Lasix) 40 mg IVPUSH Q12H [facility] Last Admin: 04/29/17 20:16 Dose: 40 mg Heparin Sodium (Porcine) (Heparin Sodium) 5,000 units SUBCUT Q12HR [facility] Last Admin: 04/29/17 20:16 Dose: 5,000 units Ondansetron HCl (Zofran) 4 mg IVPUSH Q4H PRN PRN Reason: Nausea Last Admin: 04/29/17 15:29 Dose: 4 mg Polysaccharide Iron Complex (Ferrex 150) 150 mg PO DAILY [facility] Promethazine HCl (Phenergan) 12.5 mg IM Q6H PRN PRN Reason: Nausea/Vomiting Last Admin: 04/28/17 15:26 Dose: 12.5 mg Trimethoprim/Sulfamethoxazole (Septra Ds) 1 tab PO BID [facility] Last Admin: 04/29/17 20:17 Dose: 1 tab Discontinued Medications Calcium Carbonate/Glycine (Tums) 1,000 mg PO ONETIME ONE Stop: 04/25/17 09:03 Last Admin: 04/25/17 09:18 Dose: 1,000 mg Calcium Carbonate/Glycine (Tums) 1,000 mg PO ONETIME ONE Stop: 04/26/17 08:01 Last Admin: 04/26/17 08:28 Dose: 1,000 mg Calcium Carbonate/Glycine (Tums) 1,000 mg PO ONETIME ONE Stop: 04/28/17 10:28 Last Admin: 04/28/17 10:39 Dose: Not Given Calcium Carbonate/Glycine (Tums) 1,000 mg PO ONETIME ONE Stop: 04/28/17 17:01 Last Admin: 04/28/17 17:09 Dose: 1,000 mg Calcium Carbonate/Glycine (Tums) 1,000 mg PO ONETIME ONE Stop: 04/29/17 08:18 Last Admin: 04/29/17 08:24 Dose: 1,000 mg Cephalexin (Keflex) 500 mg PO Q12HR [facility] Last Admin: 04/29/17 08:24 Dose: 500 mg Docusate Sodium (Colace) 100 mg PO DAILY PRN PRN Reason: Constipation Last Admin: 04/27/17 23:04 Dose: 100 mg Furosemide (Lasix) 40 mg IVPUSH NOW ONE Stop: 04/25/17 13:10 Last Admin: 04/25/17 15:09 Dose: 40 mg Sodium Chloride (Normal Saline) 1,000 mls @ 999 mls/hr IV .Bolus ONE Stop: 04/24/17 22:24 Last Admin: 04/24/17 21:40 Dose: 999 mls/hr Ceftriaxone Sodium/Dextrose 1 (gm/ Premix) 50 mls @ 100 mls/hr IV ONETIME ONE Stop: 04/25/17 00:37 Last Admin: 04/25/17 00:49 Dose: 100 mls/hr Sodium Chloride (Normal Saline) 1,000 mls @ 125 mls/hr IV ASDIRECTED [facility] Last Admin: 04/25/17 10:22 Dose: 125 mls/hr Ceftriaxone Sodium/Dextrose 1 (gm/ Premix) 50 mls @ 100 mls/hr IV Q24H [facility] Last Admin: 04/28/17 23:13 Dose: 100 mls/hr Sodium Chloride (Normal Saline) 500 mls @ 999 mls/hr IV .BOLUS [facility] Last Admin: 04/25/17 10:19 Dose: 999 mls/hr Magnesium Sulfate 4 gm/ Premix 100 mls @ 50 mls/hr IV ONETIME ONE Stop: 04/25/17 15:24 Last Admin: 04/25/17 15:09 Dose: 50 mls/hr Magnesium Sulfate 4 gm/ Premix 100 mls @ 50 mls/hr IV ONETIME ONE Stop: 04/26/17 09:59 Last Admin: 04/26/17 08:30 Dose: 50 mls/hr Magnesium Sulfate 4 gm/ Premix 100 mls @ 50 mls/hr IV ONETIME ONE Stop: 04/28/17 11:07 Last Admin: 04/28/17 09:22 Dose: 50 mls/hr Magnesium Sulfate 4 gm/ Premix 100 mls @ 50 mls/hr IV ONETIME ONE Stop: 04/29/17 10:17 Last Admin: 04/29/17 08:38 Dose: 50 mls/hr Potassium Chloride (Potassium Chloride) 40 meq PO ONETIME ONE Stop: 04/26/17 08:01 Last Admin: 04/26/17 08:28 Dose: 40 meq Potassium Chloride (Klor-Con M20) 40 meq PO ONETIME ONE Stop: 04/28/17 09:11 Last Admin: 04/28/17 10:00 Dose: Not Given Potassium Chloride (Potassium Chloride) 40 meq PO ONETIME ONE Stop: 04/28/17 10:01 Last Admin: 04/28/17 10:03 Dose: 40 meq Potassium Chloride (Potassium Chloride) 40 meq PO BID@0830,1700 [facility] Stop: 04/29/17 17:01 Last Admin: 04/29/17 08:24 Dose: 40 meq Potassium Chloride (Klor-Con M20) 40 meq PO BID@1100,1700 [facility] Stop: 04/29/17 17:01 Last Admin: 04/29/17 16:43 Dose: 40 meq - Exam General: alert, oriented, cooperative, no acute distress Lungs: Clear to auscultation, Normal respiratory effort Cardiovascular: Regular Rate, Regular Rhythm Abdomen: bowel sounds present, soft, no tenderness, no distension Extremities: normal pulses, no tenderness/swelling, no calf tenderness, edema (+ 1-3 pitting extending from feet to thighs and hips) Wound/Incisions: drainage (serosaguienous drainage from distal end of incision. No erythema noted today. Continue packing per Dr. Dela Cruz recommendations.), erythema improving Neurological: no new focal deficit Psy/Mental Status: alert, normal affect, normal mood - Problem List & Annotations (1) UTI (urinary tract infection) SNOMED Code(s): 94183259 Code(s): N39.0 - URINARY TRACT INFECTION, SITE NOT SPECIFIED Status: Acute Current Visit: Yes Qualifiers: Urinary tract infection type: acute cystitis Hematuria presence: without hematuria Qualified Code(s): N30.00 - Acute cystitis without hematuria (2) Anasarca SNOMED Code(s): 411988291, 717222640 Code(s): R60.1 - GENERALIZED EDEMA Status: Acute Current Visit: Yes (3) Tachycardia SNOMED Code(s): 5125696 Code(s): R00.0 - TACHYCARDIA, UNSPECIFIED Status: Resolved Current Visit : Yes (4) Generalized weakness SNOMED Code(s): 75277404 Code(s): R53.1 - WEAKNESS Status: Acute Current Visit: Yes (5) Physical deconditioning SNOMED Code(s): 19573469988754 Code(s): R53.81 - OTHER MALAISE Status: Acute Current Visit: Yes (6) Anemia SNOMED Code(s): 349511415 Code(s): D64.9 - ANEMIA, UNSPECIFIED Status: Acute Current Visit: Yes (7) History of bowel resection SNOMED Code(s): 338692565 Code(s): Z92.89 - PERSONAL HISTORY OF OTHER MEDICAL TREATMENT Status: Chronic Current Visit: Yes (8) Obesity SNOMED Code(s): 324194644 Code(s): E66.9 - OBESITY, UNSPECIFIED Status: Chronic Current Visit: Yes - Problem List Review Problem List Initiated/Reviewed/Updated: Yes - My Orders Last 24 Hours: My Active Orders 04/29/17 10:55 CULTURE WOUND [RM] Routine 04/29/17 11:15 Sulfamethoxazole/Trimethoprim [Septra DS] 1 tab PO BID 04/29/17 12:29 Consult to Occupational Therapy [OT Evaluation and Treatment] [CONS] Routine 04/29/17 21:00 Docusate Sodium [Colace] 100 mg PO BID 04/30/17 08:17 Remove Urinary Catheter [Urinary Catheter Removal] [RC] Per Unit Routine 04/30/17 08:30 Calcium Gluconate 1 gm IV ONETIME ONE 04/30/17 09:00 Iron Polysaccharides Complex [Ferrex 150] 150 mg PO DAILY 05/01/17 05:00 CBC WITH AUTO DIFF [HEME] DAILY COMPREHENSIVE METABOLIC PN,CMP [CHEM] DAILY MAGNESIUM [CHEM] DAILY 05/02/17 05:00 CBC WITH AUTO DIFF [HEME] DAILY COMPREHENSIVE METABOLIC PN,CMP [CHEM] DAILY MAGNESIUM [CHEM] DAILY - Plan Plan:: This 62 year old female admitted with UTI and generalized weakness 1. UTI: UC Klebsiella pneumoniae. Continue Bactrim PO 2. Generalized weakness: Severe deconditioning secondary to recent hospitalization. Continue PT, patient will likely need SNF for rehab. Consult OT as well for ADLs assessment. Neurology came to same conclusion, recommended CPK, which was normal. Continue with PT/OT continues to need encouragement to increase movement. 3. Fluid overload: Continue lasix, Echocardiogram was limited study due to body habitus, but EV was felt to be normal. Last dry weight known was around 220 lbs. Strict I/O 4. Abdominal incision drainage: Improving, less erythema. COnitnue dressing changes and packing. Spoke with Dr Dela Cruz, surgeon who performed R hemicolectomy beginning of April, as per description he feels this is likely some tissue necrosis, nothing to worry about. He recommended opening the site slightly with a q tip and place packing. Continue Bactrim DS BID. 5. Low albumin: Consult dietary. Also encouraged her to eat higher protein meals or shakes, at this time she was refusing them. VTE prophylaxis: Heparin Dispo: Pending placement
[2017-04-30] MEDS ORDERED: Calcium Gluconate 10% 1 GM/10 ML SDV IV ONE (08:30)
[2017-04-30] MEDS: Iron Polysaccharides Complex 150 MG Cap PO SCH (08:56)
[2017-04-30] MEDS: Furosemide 40 MG/4 ML VIAL IVPUSH SCH ×2 (08:58→20:09)
[2017-04-30] MEDS: Docusate Sodium 100 MG Cap PO SCH ×2 (08:58→22:14)
[2017-04-30] MEDS: Ondansetron 4 MG/2 ML SDV IVPUSH PRN ×2 (09:02→18:26)
[2017-04-30] MEDS: Heparin Sodium 5,000 Units/ML Vial SUBCUT SCH ×2 (09:04→20:07)
[2017-04-30] MEDS: Sulfamethoxazole/Trimethoprim 800-160 MG Tab PO SCH ×2 (09:07→22:15)
[2017-04-30] MEDS: Promethazine 25 MG/ML SDV IM PRN (20:03)
[2017-05-01] MEDS: Sulfamethoxazole/Trimethoprim 800-160 MG Tab PO SCH ×3 (02:14→21:04)
[2017-05-01] MEDS: Acetaminophen/HYDROcodone 325-7.5 MG Tab PO PRN ×4 (02:14→21:03)
[2017-05-01 05:27] LABS: CHLORIDE,CL 103 mmol/L (98-110); SODIUM,NA 134 mmol/L (136-146)
[2017-05-01] MEDS ORDERED: Calcium Gluconate 10% 1 GM/10 ML SDV IV ONE (07:20)
[2017-05-01] MEDS ORDERED: Potassium Chloride 20 MEQ Tab.ER PO ONE (07:22)
[2017-05-01] MEDS ORDERED: Magnesium Sulfate/Water 4 GM in Premix Bag 1 BAG IV ONE (07:22)
--- NOTE | 2017-05-01 07:42 | PCM.PN ---
- General Info Date of Service: 05/01/17 Admission Dx/Problem (Free Text): Admission Diagnosis/Problem Admission Diagnosis/Problem UTI, Urinary tract infectious disease Subjective Update: Feeling tired today. 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 Having some pain to upper thighs. 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 Functional Status: Reports: tolerating diet, urinating. Denies: ambulating - Review of Systems HEENT: Reports: no symptoms. Denies: sinus congestion, sore throat Pulmonary: Reports: no symptoms. Denies: shortness of breath, cough, sputum Cardiovascular: Reports: Edema. Denies: Chest Pain, Palpitations Gastrointestinal: Reports: Nausea (intermittently), Vomiting. Denies: Abdominal pain Genitourinary: Reports: no symptoms. Denies: dysuria, frequency, burning Musculoskeletal: Reports: back pain (chronic) Skin: Reports: no symptoms Neurological: Reports: No Symptoms Psychiatric: Reports: no symptoms - Patient Data Vitals - most recent: Last Vital Signs Temp 97.3 F 05/01/17 04:00 Pulse 84 05/01/17 04:00 Resp 16 05/01/17 04:00 BP 107/51 L 05/01/17 04:00 Pulse Ox 98 05/01/17 04:00 Orthostatic Blood Pressure [ 115/54 Sitting] Orthostatic Blood Pressure [ 120/63 Supine] Weight - most recent: 105.5 kg I&O - last 24 hours: Intake & Output 04/30/17 05/01/17 05/01/17 22:59 06:59 14:59 Intake Total 300 450 Output Total 400 700 Balance -100 -250 Lab Results last 24 hrs: Laboratory Results - last 24 hr 05/01/17 05/01/17 Range/Units 04:48 04:48 WBC 6.61 (4.0-11.0) K/uL RBC 2.83 L (4.30-5.90) M/uL Hgb 7.8 L (12.0-16.0) g/dL Hct 23.9 L (36.0-46.0) % MCV 84.5 (80.0-98.0) fL MCH 27.6 (27.0-32.0) pg MCHC 32.6 (31.0-37.0) g/dL RDW Std Deviation 60.1 (28.0-62.0) fl RDW Coeff of Samantha 20 H (11.0-15.0) % Plt Count 307 (150-400) K/uL MPV 8.50 (7.40-12.00) fL Neut % (Auto) 68.6 (48.0-80.0) % Lymph % (Auto) 23.4 (16.0-40.0) % [place] % (Auto) 7.0 (0.0-15.0) % Eos % (Auto) 0.8 (0.0-7.0) % Baso % (Auto) 0.2 (0.0-1.5) % Neut # (Auto) 4.5 (1.4-5.7) K/uL Lymph # (Auto) 1.6 (0.6-2.4) K/uL [place] # (Auto) 0.5 (0.0-0.8) K/uL Eos # (Auto) 0.1 (0.0-0.7) K/uL Baso # (Auto) 0.0 (0.0-0.1) K/uL Nucleated RBC % 0.0 /100WBC Nucleated RBCs # 0 K/uL Sodium 134 L (136-146) mmol/L Potassium 3.4 L (3.5-5.1) mmol/L Chloride 103 (98-110) mmol/L Carbon Dioxide 25 (21-31) mmol/L BUN 9 (6.0-23.0) mg/dL Creatinine 0.7 (0.6-1.5) mg/dL Est Cr Clr Drug Dosing 77.01 mL/min Estimated GFR (MDRD) > 60.0 ml/min Glucose 75 (60-110) mg/dL Calcium 6.6 L (8.8-10.8) mg/dL Magnesium 1.1 L (1.5-2.3) mEq/L Total Bilirubin 0.6 (0.1-1.5) mg/dL AST 21 (5-40) IU/L ALT 34 (8-54) IU/L Alkaline Phosphatase 213 H (40-150) Total Protein 3.7 L (6.0-8.0) g/dL Albumin 1.1 L (3.4-4.8) g/dL Globulin 2.6 (2.0-3.5) g/dL Albumin/Globulin Ratio 0.4 L (1.3-2.8) Med Orders - Current: Current Medications Hydrocodone Bitart/Acetaminophen ([place] 325-7.5 Mg) 1 tab PO Q4H PRN PRN Reason: Pain Last Admin: 05/01/17 02:14 Dose: 1 tab Bisacodyl (Dulcolax) 5 mg PO DAILY PRN PRN Reason: Constipation Last Admin: 04/28/17 09:22 Dose: 5 mg Calcium Carbonate/Glycine (Tums) 1,000 mg PO Q2HR PRN PRN Reason: Indigestion Last Admin: 04/28/17 12:40 Dose: 1,000 mg Docusate Sodium (Colace) 100 mg PO BID COUNTS INCLUDE 234 BEDS AT THE [facility] Last Admin: 04/30/17 22:14 Dose: 100 mg Furosemide (Lasix) 40 mg IVPUSH BIDDIURETIC COUNTS INCLUDE 234 BEDS AT THE [facility] Heparin Sodium (Porcine) (Heparin Sodium) 5,000 units SUBCUT Q12HR COUNTS INCLUDE 234 BEDS AT THE [facility] Last Admin: 04/30/17 20:07 Dose: 5,000 units Magnesium Sulfate 4 gm/ Premix 100 mls @ 50 mls/hr IV ONETIME ONE Stop: 05/01/17 09:21 Ondansetron HCl (Zofran) 4 mg IVPUSH Q4H PRN PRN Reason: Nausea Last Admin: 04/30/17 18:26 Dose: 4 mg Polysaccharide Iron Complex (Ferrex 150) 150 mg PO DAILY COUNTS INCLUDE 234 BEDS AT THE [facility] Last Admin: 04/30/17 08:56 Dose: 150 mg Promethazine HCl (Phenergan) 12.5 mg IM Q6H PRN PRN Reason: Nausea/Vomiting Last Admin: 04/30/17 20:03 Dose: 12.5 mg Trimethoprim/Sulfamethoxazole (Septra Ds) 1 tab PO BID COUNTS INCLUDE 234 BEDS AT [facility] Last Admin: 05/01/17 02:14 Dose: 1 tab Discontinued Medications Calcium Carbonate/Glycine (Tums) 1,000 mg PO ONETIME ONE Stop: 04/25/17 09:03 Last Admin: 04/25/17 09:18 Dose: 1,000 mg Calcium Carbonate/Glycine (Tums) 1,000 mg PO ONETIME ONE Stop: 04/26/17 08:01 Last Admin: 04/26/17 08:28 Dose: 1,000 mg Calcium Carbonate/Glycine (Tums) 1,000 mg PO ONETIME ONE Stop: 04/28/17 10:28 Last Admin: 04/28/17 10:39 Dose: Not Given Calcium Carbonate/Glycine (Tums) 1,000 mg PO ONETIME ONE Stop: 04/28/17 17:01 Last Admin: 04/28/17 17:09 Dose: 1,000 mg Calcium Carbonate/Glycine (Tums) 1,000 mg PO ONETIME ONE Stop: 04/29/17 08:18 Last Admin: 04/29/17 08:24 Dose: 1,000 mg Calcium Gluconate (Calcium Gluconate) 1 gm IV ONETIME ONE Stop: 04/30/17 08:31 Last Admin: 04/30/17 09:25 Dose: 1 gm Calcium Gluconate (Calcium Gluconate) 1 gm IV ONETIME ONE Stop: 05/01/17 07:21 Cephalexin (Keflex) 500 mg PO Q12HR COUNTS INCLUDE 234 BEDS AT THE [facility] Last Admin: 04/29/17 08:24 Dose: 500 mg Docusate Sodium (Colace) 100 mg PO DAILY PRN PRN Reason: Constipation Last Admin: 04/27/17 23:04 Dose: 100 mg Furosemide (Lasix) 40 mg IVPUSH NOW ONE Stop: 04/25/17 13:10 Last Admin: 04/25/17 15:09 Dose: 40 mg Furosemide (Lasix) 40 mg IVPUSH Q12H COUNTS INCLUDE 234 BEDS AT THE [facility] Last Admin: 04/30/17 20:09 Dose: 40 mg Sodium Chloride (Normal Saline) 1,000 mls @ 999 mls/hr IV .Bolus ONE Stop: 04/24/17 22:24 Last Admin: 04/24/17 21:40 Dose: 999 mls/hr Ceftriaxone Sodium/Dextrose 1 (gm/ Premix) 50 mls @ 100 mls/hr IV ONETIME ONE Stop: 04/25/17 00:37 Last Admin: 04/25/17 00:49 Dose: 100 mls/hr Sodium Chloride (Normal Saline) 1,000 mls @ 125 mls/hr IV ASDIRECTED COUNTS INCLUDE 234 BEDS AT THE [facility] Last Admin: 04/25/17 10:22 Dose: 125 mls/hr Ceftriaxone Sodium/Dextrose 1 (gm/ Premix) 50 mls @ 100 mls/hr IV Q24H COUNTS INCLUDE 234 BEDS AT THE [facility] Last Admin: 04/28/17 23:13 Dose: 100 mls/hr Sodium Chloride (Normal Saline) 500 mls @ 999 mls/hr IV .BOLUS COUNTS INCLUDE 234 BEDS AT THE [facility] Last Admin: 04/25/17 10:19 Dose: 999 mls/hr Magnesium Sulfate 4 gm/ Premix 100 mls @ 50 mls/hr IV ONETIME ONE Stop: 04/25/17 15:24 Last Admin: 04/25/17 15:09 Dose: 50 mls/hr Magnesium Sulfate 4 gm/ Premix 100 mls @ 50 mls/hr IV ONETIME ONE Stop: 04/26/17 09:59 Last Admin: 04/26/17 08:30 Dose: 50 mls/hr Magnesium Sulfate 4 gm/ Premix 100 mls @ 50 mls/hr IV ONETIME ONE Stop: 04/28/17 11:07 Last Admin: 04/28/17 09:22 Dose: 50 mls/hr Magnesium Sulfate 4 gm/ Premix 100 mls @ 50 mls/hr IV ONETIME ONE Stop: 04/29/17 10:17 Last Admin: 04/29/17 08:38 Dose: 50 mls/hr Potassium Chloride (Potassium Chloride) 40 meq PO ONETIME ONE Stop: 04/26/17 08:01 Last Admin: 04/26/17 08:28 Dose: 40 meq Potassium Chloride (Klor-Con M20) 40 meq PO ONETIME ONE Stop: 04/28/17 09:11 Last Admin: 04/28/17 10:00 Dose: Not Given Potassium Chloride (Potassium Chloride) 40 meq PO ONETIME ONE Stop: 04/28/17 10:01 Last Admin: 04/28/17 10:03 Dose: 40 meq Potassium Chloride (Potassium Chloride) 40 meq PO BID@0830,1700 COUNTS INCLUDE 234 BEDS AT THE [facility] Stop: 04/29/17 17:01 Last Admin: 04/29/17 08:24 Dose: 40 meq Potassium Chloride (Klor-Con M20) 40 meq PO BID@1100,1700 COUNTS INCLUDE 234 BEDS AT THE [facility] Stop: 04/29/17 17:01 Last Admin: 04/29/17 16:43 Dose: 40 meq Potassium Chloride (Klor-Con M20) 40 meq PO ONETIME ONE Stop: 05/01/17 07:23 - Exam General: alert, oriented, cooperative, no acute distress Neck: supple, no JVD Lungs: Clear to auscultation, Normal respiratory effort Cardiovascular: Regular Rate, Regular Rhythm Abdomen: bowel sounds present, soft, no tenderness, no distension Extremities: normal pulses, no calf tenderness, edema (+3-4 pitting edema to hips and sacral region. slow improvement.) Wound/Incisions: drainage (serosanguienous wound repacked, will monitor.), erythema improving Neurological: no new focal deficit Psy/Mental Status: alert, normal affect, normal mood - Problem List & Annotations (1) UTI (urinary tract infection) SNOMED Code(s): 74207106 Code(s): N39.0 - URINARY TRACT INFECTION, SITE NOT SPECIFIED Status: Acute Current Visit: Yes Qualifiers: Urinary tract infection type: acute cystitis Hematuria presence: without hematuria Qualified Code(s): N30.00 - Acute cystitis without hematuria (2) Anasarca SNOMED Code(s): 587067698, 247016230 Code(s): R60.1 - GENERALIZED EDEMA Status: Acute Current Visit: Yes (3) Tachycardia SNOMED Code(s): 4394196 Code(s): R00.0 - TACHYCARDIA, UNSPECIFIED Status: Resolved Current Visit : Yes (4) Generalized weakness SNOMED Code(s): 88381467 Code(s): R53.1 - WEAKNESS Status: Acute Current Visit: Yes (5) Physical deconditioning SNOMED Code(s): 19044813587696 Code(s): R53.81 - OTHER MALAISE Status: Acute Current Visit: Yes (6) Anemia SNOMED Code(s): 485099785 Code(s): D64.9 - ANEMIA, UNSPECIFIED Status: Acute Current Visit: Yes (7) History of bowel resection SNOMED Code(s): 948184857 Code(s): Z92.89 - PERSONAL HISTORY OF OTHER MEDICAL TREATMENT Status: Chronic Current Visit: Yes (8) Obesity SNOMED Code(s): 827261166 Code(s): E66.9 - OBESITY, UNSPECIFIED Status: Chronic Current Visit: Yes - Problem List Review Problem List Initiated/Reviewed/Updated: Yes - My Orders Last 24 Hours: My Active Orders 04/30/17 09:00 Iron Polysaccharides Complex [Ferrex 150] 150 mg PO DAILY 04/30/17 12:55 Consult to Dietary [Consult to Nurse Chemical Dependency] [CONS] Routine 05/01/17 07:18 RED BLOOD CELLS LP [BBK] Routine TYPE AND SCREEN [BBK] Routine Transfuse Red Blood Cells [COMM] Routine 05/01/17 07:22 Magnesium Sulfate/Water [Magnesium Sulfate 4 GM in Water 100 ML] 4 gm Premix Bag 1 bag IV ONETIME 05/01/17 08:00 Furosemide [Lasix] 40 mg IVPUSH BIDDIURETIC 05/02/17 05:00 CBC WITH AUTO DIFF [HEME] DAILY COMPREHENSIVE METABOLIC PN,CMP [CHEM] DAILY MAGNESIUM [CHEM] DAILY - Plan Plan:: This 62 year old female admitted with UTI and generalized weakness 1. UTI: UC Klebsiella pneumoniae. Continue Bactrim PO 2. Generalized weakness: Very slow improvement. Still unable to ambulate. Stands for brief second with walker and 2 assist. Severe deconditioning secondary to recent hospitalization. Continue PT/OT. Will need placement to SNF for continued PT/OT 3. Fluid overload: Slow improvement. Continue Lasix, Echocardiogram was limited study due to body habitus, but EV was felt to be normal. Last dry weight known was around 220 lbs. Strict I/O 4. Abdominal incision drainage: Continues to improve. Conitnue dressing changes and packing. Continue Bactrim DS BID. 5. Low albumin: Consult dietary. 6. Anemia: Has hx of anemia after gastric bypass. Today hgb 7.8. Will transfuse 2 units and monitor. Iron PO started yesterday. VTE prophylaxis: Heparin Dispo: Pending placement
[2017-05-01] MEDS: Iron Polysaccharides Complex 150 MG Cap PO SCH (08:15)
[2017-05-01] MEDS: Docusate Sodium 100 MG Cap PO SCH ×2 (08:15→21:03)
[2017-05-01] MEDS ORDERED: Calcium Gluconate 1 GM in Dextrose 5% in Water 50 ML IV ONE ×2 (08:15)
[2017-05-01] MEDS: Furosemide 40 MG/4 ML VIAL IVPUSH SCH ×3 (08:16→13:50)
[2017-05-01] MEDS: Heparin Sodium 5,000 Units/ML Vial SUBCUT SCH ×2 (08:16→21:02)
[2017-05-01] MEDS: Ondansetron 4 MG/2 ML SDV IVPUSH PRN (08:47)
--- NOTE | 2017-05-01 13:27 | PCM.SN ---
- Free Text/Narrative Note: Spoke with Dr Brown, he will kindly accept patient once she is transferred to [place].
[2017-05-02] MEDS: Acetaminophen/HYDROcodone 325-7.5 MG Tab PO PRN ×4 (01:28→20:06)
[2017-05-02 05:27] LABS: CHLORIDE,CL 104 mmol/L (98-110); SODIUM,NA 135 mmol/L (136-146)
[2017-05-02] MEDS: Iron Polysaccharides Complex 150 MG Cap PO SCH (08:00)
[2017-05-02] MEDS: Sulfamethoxazole/Trimethoprim 800-160 MG Tab PO SCH ×2 (08:00→20:06)
[2017-05-02] MEDS: Docusate Sodium 100 MG Cap PO SCH ×2 (08:00→20:06)
[2017-05-02] MEDS: Furosemide 40 MG/4 ML VIAL IVPUSH SCH ×2 (08:01→13:39)
[2017-05-02] MEDS: Heparin Sodium 5,000 Units/ML Vial SUBCUT SCH ×2 (08:01→20:06)
[2017-05-02] MEDS ORDERED: Magnesium Sulfate/Water 4 GM in Premix Bag 1 BAG IV ONE (08:11)
--- NOTE | 2017-05-02 09:11 | PCM.PN ---
- General Info Date of Service: 05/02/17 Admission Dx/Problem (Free Text): Admission Diagnosis/Problem Admission Diagnosis/Problem UTI, Urinary tract infectious disease Subjective Update: Much more content today, more talkative and eager to move. Feels like things are starting to improve more and more for her. Denies chest pain or SOB. Nausea is improved as well. Has not not been up ambulating. "I'm feeling muscle I didn' t know I had." (pointing to her legs). Functional Status: Reports: pain controlled, tolerating diet, urinating. Denies : ambulating - Review of Systems General: Reports: Weakness (generalized, but improving slowly.). Denies: Fever , Fatigue HEENT: Reports: no symptoms. Denies: headaches, sinus congestion, sore throat Pulmonary: Reports: no symptoms. Denies: shortness of breath, cough, sputum Cardiovascular: Reports: Edema. Denies: Chest Pain, Palpitations Gastrointestinal: Reports: No symptoms, Flatus. Denies: Abdominal pain, Constipation, Diarrhea, Nausea, Vomiting Genitourinary: Reports: no symptoms. Denies: dysuria, frequency, burning, urgency Musculoskeletal: Reports: back pain (chronic) Skin: Reports: no symptoms Neurological: Reports: No Symptoms Psychiatric: Reports: no symptoms - Patient Data Vitals - most recent: Last Vital Signs Temp 97.2 F 05/02/17 08:00 Pulse 88 05/02/17 08:00 Resp 17 05/02/17 08:00 BP 108/65 05/02/17 08:00 Pulse Ox 96 05/02/17 08:00 Orthostatic Blood Pressure [ 115/54 Sitting] Orthostatic Blood Pressure [ 120/63 Supine] Weight - most recent: 106 kg I&O - last 24 hours: Intake & Output 05/01/17 05/02/17 05/02/17 22:59 06:59 14:59 Intake Total 619 400 Output Total 500 1250 Balance 119 -850 Lab Results last 24 hrs: Laboratory Results - last 24 hr 05/01/17 05/01/17 05/02/17 Range/Units 08:08 18:06 04:27 WBC 8.39 (4.0-11.0) K/uL RBC 4.03 L (4.30-5.90) M/uL Hgb 12.2 11.2 L (12.0-16.0) g/dL Hct 35.6 L 34.1 L (36.0-46.0) % MCV 84.6 (80.0-98.0) fL MCH 27.8 (27.0-32.0) pg MCHC 32.8 (31.0-37.0) g/dL RDW Std Deviation 55.7 (28.0-62.0) fl RDW Coeff of Samantha 19 H (11.0-15.0) % Plt Count 288 (150-400) K/uL MPV 8.80 (7.40-12.00) fL Neut % (Auto) 70.7 (48.0-80.0) % Lymph % (Auto) 22.5 (16.0-40.0) % [place] % (Auto) 6.2 (0.0-15.0) % Eos % (Auto) 0.5 (0.0-7.0) % Baso % (Auto) 0.1 (0.0-1.5) % Neut # (Auto) 5.9 H (1.4-5.7) K/uL Lymph # (Auto) 1.9 (0.6-2.4) K/uL [place] # (Auto) 0.5 (0.0-0.8) K/uL Eos # (Auto) 0.0 (0.0-0.7) K/uL Baso # (Auto) 0.0 (0.0-0.1) K/uL Nucleated RBC % 0.0 /100WBC Nucleated RBCs # 0 K/uL Sodium (136-146) mmol/L Potassium (3.5-5.1) mmol/L Chloride (98-110) mmol/L Carbon Dioxide (21-31) mmol/L BUN (6.0-23.0) mg/dL Creatinine (0.6-1.5) mg/dL Est Cr Clr Drug Dosing mL/min Estimated GFR (MDRD) ml/min Glucose (60-110) mg/dL Calcium (8.8-10.8) mg/dL Magnesium (1.5-2.3) mEq/L Total Bilirubin (0.1-1.5) mg/dL AST (5-40) IU/L ALT (8-54) IU/L Alkaline Phosphatase (40-150) Total Protein (6.0-8.0) g/dL Albumin (3.4-4.8) g/dL Globulin (2.0-3.5) g/dL Albumin/Globulin Ratio (1.3-2.8) Blood Type A POSITIVE Antibody Screen NEGATIVE Crossmatch See Detail 05/02/17 Range/Units 04:27 WBC (4.0-11.0) K/uL RBC (4.30-5.90) M/uL Hgb (12.0-16.0) g/dL Hct (36.0-46.0) % MCV (80.0-98.0) fL MCH (27.0-32.0) pg MCHC (31.0-37.0) g/dL RDW Std Deviation (28.0-62.0) fl RDW Coeff of Samantha (11.0-15.0) % Plt Count (150-400) K/uL MPV (7.40-12.00) fL Neut % (Auto) (48.0-80.0) % Lymph % (Auto) (16.0-40.0) % [place] % (Auto) (0.0-15.0) % Eos % (Auto) (0.0-7.0) % Baso % (Auto) (0.0-1.5) % Neut # (Auto) (1.4-5.7) K/uL Lymph # (Auto) (0.6-2.4) K/uL [place] # (Auto) (0.0-0.8) K/uL Eos # (Auto) (0.0-0.7) K/uL Baso # (Auto) (0.0-0.1) K/uL Nucleated RBC % /100WBC Nucleated RBCs # K/uL Sodium 135 L (136-146) mmol/L Potassium 3.9 (3.5-5.1) mmol/L Chloride 104 (98-110) mmol/L Carbon Dioxide 24 (21-31) mmol/L BUN 9 (6.0-23.0) mg/dL Creatinine 0.8 (0.6-1.5) mg/dL Est Cr Clr Drug Dosing 67.38 mL/min Estimated GFR (MDRD) > 60.0 ml/min Glucose 82 (60-110) mg/dL Calcium 6.7 L (8.8-10.8) mg/dL Magnesium 1.4 L (1.5-2.3) mEq/L Total Bilirubin 0.8 (0.1-1.5) mg/dL AST 35 (5-40) IU/L ALT 42 (8-54) IU/L Alkaline Phosphatase 276 H (40-150) Total Protein 4.3 L (6.0-8.0) g/dL Albumin 1.3 L (3.4-4.8) g/dL Globulin 3.0 (2.0-3.5) g/dL Albumin/Globulin Ratio 0.4 L (1.3-2.8) Blood Type Antibody Screen Crossmatch Zen Results last 24 hrs: Microbiology 04/29/17 10:55 Wound Culture - Final Abdomen - Drainage No Growth Med Orders - Current: Current Medications Hydrocodone Bitart/Acetaminophen ([place] 325-7.5 Mg) 1 tab PO Q4H PRN PRN Reason: Pain Last Admin: 05/02/17 08:23 Dose: 1 tab Bisacodyl (Dulcolax) 5 mg PO DAILY PRN PRN Reason: Constipation Last Admin: 04/28/17 09:22 Dose: 5 mg Calcium Carbonate/Glycine (Tums) 1,000 mg PO Q2HR PRN PRN Reason: Indigestion Last Admin: 04/28/17 12:40 Dose: 1,000 mg Docusate Sodium (Colace) 100 mg PO BID JASON Last Admin: 05/02/17 08:00 Dose: 100 mg Furosemide (Lasix) 40 mg IVPUSH BIDDIURETIC JASON Last Admin: 05/02/17 08:01 Dose: 40 mg Heparin Sodium (Porcine) (Heparin Sodium) 5,000 units SUBCUT Q12HR JASON Last Admin: 05/02/17 08:01 Dose: 5,000 units Magnesium Sulfate 4 gm/ Premix 100 mls @ 50 mls/hr IV ONETIME ONE Stop: 05/02/17 10:10 Last Admin: 05/02/17 08:24 Dose: 50 mls/hr Ondansetron HCl (Zofran) 4 mg IVPUSH Q4H PRN PRN Reason: Nausea Last Admin: 05/01/17 08:47 Dose: 4 mg Polysaccharide Iron Complex (Ferrex 150) 150 mg PO DAILY JASON Last Admin: 05/02/17 08:00 Dose: 150 mg Promethazine HCl (Phenergan) 12.5 mg IM Q6H PRN PRN Reason: Nausea/Vomiting Last Admin: 04/30/17 20:03 Dose: 12.5 mg Trimethoprim/Sulfamethoxazole (Septra Ds) 1 tab PO BID [facility] Last Admin: 05/02/17 08:00 Dose: 1 tab Discontinued Medications Calcium Carbonate/Glycine (Tums) 1,000 mg PO ONETIME ONE Stop: 04/25/17 09:03 Last Admin: 04/25/17 09:18 Dose: 1,000 mg Calcium Carbonate/Glycine (Tums) 1,000 mg PO ONETIME ONE Stop: 04/26/17 08:01 Last Admin: 04/26/17 08:28 Dose: 1,000 mg Calcium Carbonate/Glycine (Tums) 1,000 mg PO ONETIME ONE Stop: 04/28/17 10:28 Last Admin: 04/28/17 10:39 Dose: Not Given Calcium Carbonate/Glycine (Tums) 1,000 mg PO ONETIME ONE Stop: 04/28/17 17:01 Last Admin: 04/28/17 17:09 Dose: 1,000 mg Calcium Carbonate/Glycine (Tums) 1,000 mg PO ONETIME ONE Stop: 04/29/17 08:18 Last Admin: 04/29/17 08:24 Dose: 1,000 mg Calcium Gluconate (Calcium Gluconate) 1 gm IV ONETIME ONE Stop: 04/30/17 08:31 Last Admin: 04/30/17 09:25 Dose: 1 gm Cephalexin (Keflex) 500 mg PO Q12HR [facility] Last Admin: 04/29/17 08:24 Dose: 500 mg Docusate Sodium (Colace) 100 mg PO DAILY PRN PRN Reason: Constipation Last Admin: 04/27/17 23:04 Dose: 100 mg Furosemide (Lasix) 40 mg IVPUSH NOW ONE Stop: 04/25/17 13:10 Last Admin: 04/25/17 15:09 Dose: 40 mg Furosemide (Lasix) 40 mg IVPUSH Q12H [facility] Last Admin: 04/30/17 20:09 Dose: 40 mg Sodium Chloride (Normal Saline) 1,000 mls @ 999 mls/hr IV .Bolus ONE Stop: 04/24/17 22:24 Last Admin: 04/24/17 21:40 Dose: 999 mls/hr Ceftriaxone Sodium/Dextrose 1 (gm/ Premix) 50 mls @ 100 mls/hr IV ONETIME ONE Stop: 04/25/17 00:37 Last Admin: 04/25/17 00:49 Dose: 100 mls/hr Sodium Chloride (Normal Saline) 1,000 mls @ 125 mls/hr IV ASDIRECTED JASON Last Admin: 04/25/17 10:22 Dose: 125 mls/hr Ceftriaxone Sodium/Dextrose 1 (gm/ Premix) 50 mls @ 100 mls/hr IV Q24H JASON Last Admin: 04/28/17 23:13 Dose: 100 mls/hr Sodium Chloride (Normal Saline) 500 mls @ 999 mls/hr IV .BOLUS [facility] Last Admin: 04/25/17 10:19 Dose: 999 mls/hr Magnesium Sulfate 4 gm/ Premix 100 mls @ 50 mls/hr IV ONETIME ONE Stop: 04/25/17 15:24 Last Admin: 04/25/17 15:09 Dose: 50 mls/hr Magnesium Sulfate 4 gm/ Premix 100 mls @ 50 mls/hr IV ONETIME ONE Stop: 04/26/17 09:59 Last Admin: 04/26/17 08:30 Dose: 50 mls/hr Magnesium Sulfate 4 gm/ Premix 100 mls @ 50 mls/hr IV ONETIME ONE Stop: 04/28/17 11:07 Last Admin: 04/28/17 09:22 Dose: 50 mls/hr Magnesium Sulfate 4 gm/ Premix 100 mls @ 50 mls/hr IV ONETIME ONE Stop: 04/29/17 10:17 Last Admin: 04/29/17 08:38 Dose: 50 mls/hr Magnesium Sulfate 4 gm/ Premix 100 mls @ 50 mls/hr IV ONETIME ONE Stop: 05/01/17 09:21 Last Admin: 05/01/17 08:17 Dose: 50 mls/hr Calcium Gluconate 1 gm/ (Dextrose/Water) 60 mls @ 120 mls/hr IV ONETIME ONE Stop: 05/01/17 08:44 Last Admin: 05/01/17 11:08 Dose: 120 mls/hr Potassium Chloride (Potassium Chloride) 40 meq PO ONETIME ONE Stop: 04/26/17 08:01 Last Admin: 04/26/17 08:28 Dose: 40 meq Potassium Chloride (Klor-Con M20) 40 meq PO ONETIME ONE Stop: 04/28/17 09:11 Last Admin: 04/28/17 10:00 Dose: Not Given Potassium Chloride (Potassium Chloride) 40 meq PO ONETIME ONE Stop: 04/28/17 10:01 Last Admin: 04/28/17 10:03 Dose: 40 meq Potassium Chloride (Potassium Chloride) 40 meq PO BID@0830,1700 JASON Stop: 04/29/17 17:01 Last Admin: 04/29/17 08:24 Dose: 40 meq Potassium Chloride (Klor-Con M20) 40 meq PO BID@1100,1700 JASON Stop: 04/29/17 17:01 Last Admin: 04/29/17 16:43 Dose: 40 meq Potassium Chloride (Klor-Con M20) 40 meq PO ONETIME ONE Stop: 05/01/17 07:23 Last Admin: 05/01/17 08:15 Dose: 40 meq - Exam Quality Assessment: DVT prophylaxis. No: supplemental oxygen General: alert, oriented, cooperative, no acute distress HEENT: Pupils equal, Pupils reactive, EOMI, Mucous membr. moist/pink Neck: supple, trachea midline, no JVD Lungs: Clear to auscultation, Normal respiratory effort Cardiovascular: Regular Rate, Regular Rhythm, No Murmurs Abdomen: bowel sounds present, soft, no tenderness, no distension Back Exam: Normal Inspection, Full Range of Motion Extremities: edema (+3 pitting edema to bilateral hips extending down to feet and slowly lessens and it moves distall, to +1 non-pitting on feet) Wound/Incisions: healing well, dressing dry and intact, drainage (less drainage than previous from distal incision, continues to be packed daily, approximately .5 cm deep. No further erythema and no purulent drainage noted.) Neurological: no new focal deficit Psy/Mental Status: alert, normal affect, normal mood - Problem List & Annotations (1) UTI (urinary tract infection) SNOMED Code(s): 70931454 Code(s): N39.0 - URINARY TRACT INFECTION, SITE NOT SPECIFIED Status: Acute Current Visit: Yes Qualifiers: Urinary tract infection type: acute cystitis Hematuria presence: without hematuria Qualified Code(s): N30.00 - Acute cystitis without hematuria (2) Anasarca SNOMED Code(s): 719894101, 511908816 Code(s): R60.1 - GENERALIZED EDEMA Status: Acute Current Visit: Yes (3) Generalized weakness SNOMED Code(s): 26291153 Code(s): R53.1 - WEAKNESS Status: Acute Current Visit: Yes (4) Physical deconditioning SNOMED Code(s): 04196532530785 Code(s): R53.81 - OTHER MALAISE Status: Acute Current Visit: Yes (5) Anemia SNOMED Code(s): 659540093 Code(s): D64.9 - ANEMIA, UNSPECIFIED Status: Acute Current Visit: Yes (6) History of bowel resection SNOMED Code(s): 188665837 Code(s): Z92.89 - PERSONAL HISTORY OF OTHER MEDICAL TREATMENT Status: Chronic Current Visit: Yes (7) Obesity SNOMED Code(s): 181135733 Code(s): E66.9 - OBESITY, UNSPECIFIED Status: Chronic Current Visit: Yes Qualifiers: Obesity severity: morbid - Problem List Review Problem List Initiated/Reviewed/Updated: Yes - My Orders Last 24 Hours: My Active Orders 05/01/17 13:36 Communication Order [RC] PRN 05/02/17 08:11 Magnesium Sulfate/Water [Magnesium Sulfate 4 GM in Water 100 ML] 4 gm Premix Bag 1 bag IV ONETIME - Plan Plan:: This 62 year old female admitted with UTI and generalized weakness 1. UTI: UC Klebsiella pneumoniae. Continue Bactrim PO 2. Generalized weakness: Continues to have very slow improvement, unable to ambulate. Needs maximum assistance to stand with PT, 2 people gait belt and walker, but does not take any steps. Stands for brief second then back to sitting due to weakness. Severe deconditioning due to recent hospitalization. She did mention after surgery in [place] she had much of the same issues with weakness and they offered for her to be transferred to a swing bed unit at that time she declined. She went home and continued to decline and then needed this admission. Continue PT/OT. Placement for rehab would be best option due to the inability to ambulate and limited assistance at home since sons and work. 3. Fluid overload: Slow improvement. Continue Lasix. Strict I/O, dialy weights 4. Abdominal incision drainage: Showing good improvement, less drainage. No erythema. Continue daily dressing changes. Wound culture showed no growth. 5. Low albumin: Consult dietary. Has changed some diet habits, but encouraged to continue to increase protein intake. 6. Anemia: Has hx of anemia after gastric bypass. Transfused 2 units, hgb 11.2 today. Patient feeling much better. Continue Iron PO. VTE prophylaxis: Heparin Dispo: Pending placement
[2017-05-02] MEDS: Calcium Carbonate 500 MG Tab.Chew PO PRN (15:45)
[2017-05-03] MEDS: Acetaminophen/HYDROcodone 325-7.5 MG Tab PO PRN ×2 (00:26→09:15)
[2017-05-03 05:32] LABS: CHLORIDE,CL 103 mmol/L (98-110); SODIUM,NA 133 mmol/L (136-146)
[2017-05-03] MEDS: Heparin Sodium 5,000 Units/ML Vial SUBCUT SCH (09:06)
[2017-05-03] MEDS: Iron Polysaccharides Complex 150 MG Cap PO SCH (09:06)
[2017-05-03] MEDS: Furosemide 40 MG/4 ML VIAL IVPUSH SCH ×2 (09:06→15:26)
[2017-05-03] MEDS: Sulfamethoxazole/Trimethoprim 800-160 MG Tab PO SCH (09:07)
[2017-05-03] MEDS: Docusate Sodium 100 MG Cap PO SCH (09:07)
[2017-05-03 11:35] VITALS: BP 129/67
--- NOTE | 2017-05-03 11:41 | PCM.DCSUM1 ---
Discharge Summary - Hospital Course Brief History: she was admitted with profound weakness. She was noted to have a UTI . She had fallen at home. - Discharge Data Discharge Date: 05/03/17 Discharge Disposition: Home, Self-Care 01 Condition: Fair - Patient Summary/Data Consults: Consultations 04/25/17 10:07 Consult to Physical Therapy [PT Evaluation and Treatment] [CONS] Routine 04/29/17 12:29 Consult to Occupational Therapy [OT Evaluation and Treatment] [CONS] Routine 04/30/17 12:55 Consult to Dietary [Consult to Single Wire Saw Operator] [CONS] Routine Hospital Course: She was noted to be status post abdominal surgery for obstruction earlier this month. She has had a bowel resection for colon cancer. She has also had gastrectomy in the past. She was treated with bactrim for her UTI. Her urine culture grew Klebsiela pneumonia that was S to bactrim. She has received adequate treament and will not be discharged on antibiotics . She was given physical therapy and is ambulating with a walker at discharge. We had attempted placement at [facility] but this was denied by her insurance carrier, [place] . I spoke with the insurance agents supervisor, Dr Meier, who stated that the company would have to decline jail coverage. We are seeking home health at discharge but this will have to be approved by her attending physician, who will be Dr Fredo Reyes. She had slight dehiscence of the inferior aspect of her abdominal surgical wound. Wound culture was negative. The wound is being packed daily with sterile gauze strip. She had marked swelling LE's that was treated with lasix IV 40 mg bid. This improved. Her serum creatinine is normal at discharge. Her echocardiogram was technically difficult and a LVEF could not be determined. She is not being discharged on lasix as the peripheral edema may have been due to a volume overload associated with her recent surgery and hospitalization. This might need to be restarted at some point however. Her serum Ca is 6.8 at discharge but her serum albumin is 1.3. She has been counseled regarding a high protein diet. She is to follow up early next week with Dr Brown. oncology follow up is recommended. She states that she plans to return to her home in [place]. She is not yet certain when this will be. IMpression: deconditioning UTI from Klebsiella; adequately treated. wound dehiscence ( mild) recent abdominal surgery/ colon resection history of colon cancer low serum albumin likely related to protein calorie malnutrion severe LE edema thought secondary to volume overload and hypoalbuminemia prior gastrectomy discharge is home with follow up with Dr Brown - Discharge Plan Home Medications: Home Meds Hydrocodone/Acetaminophen [Hydrocodon-Acetaminoph 7.5-325] 7.5 - 325 mg PO Q4HR PRN 04/12/17 [History] Patient Handouts: Anemia, Nonspecific, Edema Referrals: Fredo Brown MD [Physician] - 05/07/17 8:30 am - Patient Data Vitals - Most Recent: Last Vital Signs Temp 96.6 F 05/03/17 11:34 Pulse 85 05/03/17 11:34 Resp 20 05/03/17 11:34 BP 129/67 05/03/17 11:34 Pulse Ox 98 05/03/17 11:34 Orthostatic Blood Pressure [ 115/54 Sitting] Orthostatic Blood Pressure [ 120/63 Supine] Weight - Most Recent: 106 kg I&O - Last 24 hours: Intake & Output 05/02/17 05/03/17 05/03/17 22:59 06:59 14:59 Intake Total 440 820 Output Total 710 410 Balance -270 410 Lab Results - Last 24 hrs: Laboratory Results - last 24 hr 05/03/17 05/03/17 Range/Units 05:11 05:11 WBC 5.77 (4.0-11.0) K/uL RBC 3.88 L (4.30-5.90) M/uL Hgb 10.7 L (12.0-16.0) g/dL Hct 33.3 L (36.0-46.0) % MCV 85.8 (80.0-98.0) fL MCH 27.6 (27.0-32.0) pg MCHC 32.1 (31.0-37.0) g/dL RDW Std Deviation 57.1 (28.0-62.0) fl RDW Coeff of Samantha 19 H (11.0-15.0) % Plt Count 269 (150-400) K/uL MPV 8.60 (7.40-12.00) fL Neut % (Auto) 55.4 (48.0-80.0) % Lymph % (Auto) 35.2 (16.0-40.0) % [place] % (Auto) 7.6 (0.0-15.0) % Eos % (Auto) 1.6 (0.0-7.0) % Baso % (Auto) 0.2 (0.0-1.5) % Neut # (Auto) 3.2 (1.4-5.7) K/uL Lymph # (Auto) 2.0 (0.6-2.4) K/uL [place] # (Auto) 0.4 (0.0-0.8) K/uL Eos # (Auto) 0.1 (0.0-0.7) K/uL Baso # (Auto) 0.0 (0.0-0.1) K/uL Nucleated RBC % 0.0 /100WBC Nucleated RBCs # 0 K/uL Sodium 133 L (136-146) mmol/L Potassium 3.9 (3.5-5.1) mmol/L Chloride 103 (98-110) mmol/L Carbon Dioxide 23 (21-31) mmol/L BUN 9 (6.0-23.0) mg/dL Creatinine 0.8 (0.6-1.5) mg/dL Est Cr Clr Drug Dosing 67.75 mL/min Estimated GFR (MDRD) > 60.0 ml/min Glucose 74 (60-110) mg/dL Calcium 6.8 L (8.8-10.8) mg/dL Magnesium 1.5 (1.5-2.3) mEq/L Med Orders - Current: Current Medications Hydrocodone Bitart/Acetaminophen ([place] 325-7.5 Mg) 1 tab PO Q4H PRN PRN Reason: Pain Last Admin: 05/03/17 09:15 Dose: 1 tab Bisacodyl (Dulcolax) 5 mg PO DAILY PRN PRN Reason: Constipation Last Admin: 04/28/17 09:22 Dose: 5 mg Calcium Carbonate/Glycine (Tums) 1,000 mg PO Q2HR PRN PRN Reason: Indigestion Last Admin: 05/02/17 15:45 Dose: 1,000 mg Docusate Sodium (Colace) 100 mg PO BID JASON Last Admin: 05/03/17 09:07 Dose: 100 mg Furosemide (Lasix) 40 mg IVPUSH BIDDIURETIC JASON Last Admin: 05/03/17 09:06 Dose: 40 mg Heparin Sodium (Porcine) (Heparin Sodium) 5,000 units SUBCUT Q12HR [facility] Last Admin: 05/03/17 09:06 Dose: 5,000 units Ondansetron HCl (Zofran) 4 mg IVPUSH Q4H PRN PRN Reason: Nausea Last Admin: 05/01/17 08:47 Dose: 4 mg Polysaccharide Iron Complex (Ferrex 150) 150 mg PO DAILY [facility] Last Admin: 05/03/17 09:06 Dose: 150 mg Promethazine HCl (Phenergan) 12.5 mg IM Q6H PRN PRN Reason: Nausea/Vomiting Last Admin: 04/30/17 20:03 Dose: 12.5 mg Trimethoprim/Sulfamethoxazole (Septra Ds) 1 tab PO BID [facility] Last Admin: 05/03/17 09:07 Dose: 1 tab Discontinued Medications Calcium Carbonate/Glycine (Tums) 1,000 mg PO ONETIME ONE Stop: 04/25/17 09:03 Last Admin: 04/25/17 09:18 Dose: 1,000 mg Calcium Carbonate/Glycine (Tums) 1,000 mg PO ONETIME ONE Stop: 04/26/17 08:01 Last Admin: 04/26/17 08:28 Dose: 1,000 mg Calcium Carbonate/Glycine (Tums) 1,000 mg PO ONETIME ONE Stop: 04/28/17 10:28 Last Admin: 04/28/17 10:39 Dose: Not Given Calcium Carbonate/Glycine (Tums) 1,000 mg PO ONETIME ONE Stop: 04/28/17 17:01 Last Admin: 04/28/17 17:09 Dose: 1,000 mg Calcium Carbonate/Glycine (Tums) 1,000 mg PO ONETIME ONE Stop: 04/29/17 08:18 Last Admin: 04/29/17 08:24 Dose: 1,000 mg Calcium Gluconate (Calcium Gluconate) 1 gm IV ONETIME ONE Stop: 04/30/17 08:31 Last Admin: 04/30/17 09:25 Dose: 1 gm Cephalexin (Keflex) 500 mg PO Q12HR [facility] Last Admin: 04/29/17 08:24 Dose: 500 mg Docusate Sodium (Colace) 100 mg PO DAILY PRN PRN Reason: Constipation Last Admin: 04/27/17 23:04 Dose: 100 mg Furosemide (Lasix) 40 mg IVPUSH NOW ONE Stop: 04/25/17 13:10 Last Admin: 04/25/17 15:09 Dose: 40 mg Furosemide (Lasix) 40 mg IVPUSH Q12H [facility] Last Admin: 04/30/17 20:09 Dose: 40 mg Sodium Chloride (Normal Saline) 1,000 mls @ 999 mls/hr IV .Bolus ONE Stop: 04/24/17 22:24 Last Admin: 04/24/17 21:40 Dose: 999 mls/hr Ceftriaxone Sodium/Dextrose 1 (gm/ Premix) 50 mls @ 100 mls/hr IV ONETIME ONE Stop: 04/25/17 00:37 Last Admin: 04/25/17 00:49 Dose: 100 mls/hr Sodium Chloride (Normal Saline) 1,000 mls @ 125 mls/hr IV ASDIRECTED [facility] Last Admin: 04/25/17 10:22 Dose: 125 mls/hr Ceftriaxone Sodium/Dextrose 1 (gm/ Premix) 50 mls @ 100 mls/hr IV Q24H [facility] Last Admin: 04/28/17 23:13 Dose: 100 mls/hr Sodium Chloride (Normal Saline) 500 mls @ 999 mls/hr IV .BOLUS [facility] Last Admin: 04/25/17 10:19 Dose: 999 mls/hr Magnesium Sulfate 4 gm/ Premix 100 mls @ 50 mls/hr IV ONETIME ONE Stop: 04/25/17 15:24 Last Admin: 04/25/17 15:09 Dose: 50 mls/hr Magnesium Sulfate 4 gm/ Premix 100 mls @ 50 mls/hr IV ONETIME ONE Stop: 04/26/17 09:59 Last Admin: 04/26/17 08:30 Dose: 50 mls/hr Magnesium Sulfate 4 gm/ Premix 100 mls @ 50 mls/hr IV ONETIME ONE Stop: 04/28/17 11:07 Last Admin: 04/28/17 09:22 Dose: 50 mls/hr Magnesium Sulfate 4 gm/ Premix 100 mls @ 50 mls/hr IV ONETIME ONE Stop: 04/29/17 10:17 Last Admin: 04/29/17 08:38 Dose: 50 mls/hr Magnesium Sulfate 4 gm/ Premix 100 mls @ 50 mls/hr IV ONETIME ONE Stop: 05/01/17 09:21 Last Admin: 05/01/17 08:17 Dose: 50 mls/hr Calcium Gluconate 1 gm/ (Dextrose/Water) 60 mls @ 120 mls/hr IV ONETIME ONE Stop: 05/01/17 08:44 Last Admin: 05/01/17 11:08 Dose: 120 mls/hr Magnesium Sulfate 4 gm/ Premix 100 mls @ 50 mls/hr IV ONETIME ONE Stop: 05/02/17 10:10 Last Admin: 05/02/17 08:24 Dose: 50 mls/hr Potassium Chloride (Potassium Chloride) 40 meq PO ONETIME ONE Stop: 04/26/17 08:01 Last Admin: 04/26/17 08:28 Dose: 40 meq Potassium Chloride (Klor-Con M20) 40 meq PO ONETIME ONE Stop: 04/28/17 09:11 Last Admin: 04/28/17 10:00 Dose: Not Given Potassium Chloride (Potassium Chloride) 40 meq PO ONETIME ONE Stop: 04/28/17 10:01 Last Admin: 04/28/17 10:03 Dose: 40 meq Potassium Chloride (Potassium Chloride) 40 meq PO BID@0830,1700 [facility] Stop: 04/29/17 17:01 Last Admin: 04/29/17 08:24 Dose: 40 meq Potassium Chloride (Klor-Con M20) 40 meq PO BID@1100,1700 [facility] Stop: 04/29/17 17:01 Last Admin: 04/29/17 16:43 Dose: 40 meq Potassium Chloride (Klor-Con M20) 40 meq PO ONETIME ONE Stop: 05/01/17 07:23 Last Admin: 05/01/17 08:15 Dose: 40 meq *Q Meaningful Use (DIS) - VTE *Q VTE Criteria *Q: - Stroke *Q Stroke Criteria *Q: - AMI *Q AMI Criteria *Q:
== END 2017-05-03 13:20 | disposition home or self-care (01) | DRG 690 ==
LOC: MW.ED 21:09 → MW.MS 04-25 00:28 → OBSVTOIN 04-25 00:28 → MW.MS 04-25 01:06
PROVIDERS: ADMIT Internal Medicine; ATTEND Internal Medicine
DX: N39.0 Urinary tract infection, site not specified (principal); T81.31XA Disruption of external operation (surgical) wound, not elsewhere classified, initial encounter; E46 Unspecified protein-calorie malnutrition; Z68.41 Body mass index [BMI] 40.0-44.9, adult; B96.1 Klebsiella pneumoniae [K. pneumoniae] as the cause of diseases classified elsewhere; R53.1 Weakness; R53.81 Other malaise; D64.9 Anemia, unspecified; R74.8 Abnormal levels of other serum enzymes; E88.09 Other disorders of plasma-protein metabolism, not elsewhere classified; R60.1 Generalized edema; Z85.038 Personal history of other malignant neoplasm of large intestine; Z98.84 Bariatric surgery status; Z88.8 Allergy status to other drugs, medicaments and biological substances; E66.01 Morbid (severe) obesity due to excess calories
CPT/HCPCS: 36410; 36415; 36430; 71010; 71010-26; 80048; 80053; 81001; 82272; 82330; 82550; 83605; 83735; 83880; 84100; 84484; 85014; 85018; 85025; 86850; 86900; 86901; 86920; 86921; 86922; 87040; 87070; 87086; 87088; 87186; 93005; 93306; 96361; 96365; 97110-GP; 97162-GP; 97165-GO; 97530-GP; 99285; 99285-25; A9270-GY; J0610; J0696; J1644; J1940; J2405; J2550; J3475; J7040; J7060; P9016